=== PATIENT | female | born 1975 | race Two or more races ===

== ENCOUNTER 2023-05-26 11:34 | Inpatient (IN) | payer MEDICAID, OTHER ==
[~2023-05-26] VITALS: Ht 162.6 cm; Wt 94.0 kg
[2023-05-26 12:22] LABS: Urine Epithelial Cast None Seen /hpf (<5)
[2023-05-26 12:55] LABS: Urine Bacteria FEW /hpf (None Seen); Urine Blood 1+ /uL (Negative); Urine Clarity HAZY (Clear); Urine Color Yellow (Yellow); Urine Hyaline Cast FEW /lpf (0 - 2); Urine Mucus FEW (None Seen); Urine Protein, UAD 1+ (Negative); Urine Specific Gravity 1.028 (1.001-1.035); Urine WBC 18 /hpf (0 - 5)
[2023-05-26 12:56] LABS: Basophils # (auto) 0 10 ^3/uL (0-0.2); Basophils % (auto) 0.2 % (0.0-2.0); Eosinophils # (auto) 0 10 ^3/uL (0-0.8); Hematocrit 45.7 % (36.0-46.0); Hemoglobin 14.7 g/dL (12.2-16.2); Lymphocytes % (auto) 7.7 % (10.0-50.0); Mean Corpuscular Hemoglobin 28.2 pg (28.0-32.0); Mean Corpuscular Hgb Conc. 32.3 g/dL (32.0-36.0); Mean Corpuscular Volume 87.3 fL (80.0-100.0); Monocytes # (auto) 0.4 10 ^3/uL (0-1.3); Neutrophils # (auto) 11.9 10 ^3/uL (1.6-8.6); Neutrophils % (auto) 89.1 % (37.0-80.0); Red Blood Cells 5.23 10^6/uL (4.0-5.20); Red Cell Distribution Width 13.7 % (11.8-14.3); White Blood Cell 13.4 10^3/uL (4.4-10.8)
[2023-05-26] MEDS ORDERED: SODIUM CHLORIDE 0.9% 1,000 ML IVB ONE (13:15)
[2023-05-26 13:19] LABS: Alanine Aminotransferase 81 U/L (7-40); Albumin 4.6 g/dL (3.2-4.8); Alkaline Phosphatase 141 U/L (46-116); Anion Gap 10 (5-15); Aspartate Aminotransferase 58 U/L (13-40); BUN/Creatinine Ratio 12.6 (10.0-20.0); Bilirubin, Total 1.5 mg/dL (0.2-1.0); Blood Urea Nitrogen 12 mg/dL (9-23); Calcium 9.4 mg/dL (8.5-10.1); Carbon Dioxide 23 mmol/L (20-30); Chloride 102 mmol/L (98-107); Glucose 122 mg/dL (74-106); Potassium 4.1 mmol/L (3.5-5.1); Sodium 135 mmol/L (136-145); Total Protein 8.1 g/dL (5.7-8.2)
[2023-05-26 14:09] LABS: Magnesium 1.7 mg/dL (1.6-2.6)
[2023-05-26] MEDS ORDERED: cefTRIAXone 1GM/50ML D5W 50 ML IV ONE (14:45)
[2023-05-26] MEDS ORDERED: metroNIDAZOLE 500MG/100ML 100 ML IV ONE (18:15)
[2023-05-26] MEDS ORDERED: KETOROLAC TROMETH 30 MG/ML 1ML VIAL IV ONE (18:45)
[2023-05-26] MEDS ORDERED: ONDANSETRON HCL 4 MG/2 ML VIAL IV PRN (19:15)
[2023-05-26] MEDS ORDERED: MORPHINE SULFATE 4 MG/ML SYR/VIAL IV ONE (19:15)
[2023-05-26] MEDS ORDERED: DOCUSATE SOD 100 MG CAP PO PRN (19:15)
[2023-05-26] MEDS ORDERED: ONDANSETRON HCL 4 MG/2 ML VIAL IV ONE (19:15)
[2023-05-26 19:45] VITALS: PULSE 102; RESP 16; O2SAT 96
[2023-05-26] MEDS: SODIUM CHLORIDE 0.9% 1,000 ML IV SCH (20:29)
[2023-05-26] MEDS: metroNIDAZOLE 500MG/100ML 100 ML IV SCH (21:20)
[2023-05-26] MEDS: DOXYCYCLINE 100MG/250ML 250 ML IV SCH (21:23)
[2023-05-26 22:00] VITALS: BP 104/54; PULSE 88; RESP 18; TEMP 98.4; O2SAT 94
[2023-05-27] MEDS: SODIUM CHLORIDE 0.9% 1,000 ML IV SCH ×3 (03:38→20:15)
[2023-05-27] MEDS: metroNIDAZOLE 500MG/100ML 100 ML IV SCH ×3 (04:36→22:00)
[2023-05-27] MEDS: HYDROcodone-ACET 5/325MG TAB PO PRN ×2 (04:36→09:52)
[2023-05-27 05:00] VITALS: BP 97/62; PULSE 86; RESP 18; TEMP 98.5; O2SAT 99
[2023-05-27 08:00] LABS: Basophils # (auto) 0 10 ^3/uL (0-0.2); Basophils % (auto) 0.2 % (0.0-2.0); Eosinophils # (auto) 0 10 ^3/uL (0-0.8); Hematocrit 37.1 % (36.0-46.0); Lymphocytes # (auto) 1.2 10 ^3/uL (0.4-5.4); Lymphocytes % (auto) 9.7 % (10.0-50.0); Mean Corpuscular Hemoglobin 28.6 pg (28.0-32.0); Mean Corpuscular Hgb Conc. 32.3 g/dL (32.0-36.0); Mean Corpuscular Volume 88.4 fL (80.0-100.0); Monocytes # (auto) 0.7 10 ^3/uL (0-1.3); Monocytes % (auto) 5.9 % (0.0-12.0); Neutrophils # (auto) 10.7 10 ^3/uL (1.6-8.6); Neutrophils % (auto) 84.2 % (37.0-80.0); Red Cell Distribution Width 13.5 % (11.8-14.3); White Blood Cell 12.7 10^3/uL (4.4-10.8)
[2023-05-27 08:25] LABS: Alanine Aminotransferase 53 U/L (7-40); Albumin 3.6 g/dL (3.2-4.8); Alkaline Phosphatase 100 U/L (46-116); Anion Gap 10 (5-15); Aspartate Aminotransferase 21 U/L (13-40); BUN/Creatinine Ratio 16.3 (10.0-20.0); Blood Urea Nitrogen 13 mg/dL (9-23); Calcium 8.6 mg/dL (8.5-10.1); Carbon Dioxide 20 mmol/L (20-30); Chloride 105 mmol/L (98-107); Cholesterol 104 mg/dL (< 200); Glucose 107 mg/dL (74-106); HDL Cholesterol 47 mg/dL (40-59); LDL Cholesterol 45 mg/dL (< 100); Potassium 3.4 mmol/L (3.5-5.1); Sodium 135 mmol/L (136-145); Triglycerides 49 mg/dL (< 150)
[2023-05-27 08:26] LABS: Bilirubin, Total 0.9 mg/dL (0.2-1.0); Total Protein 6.4 g/dL (5.7-8.2)
[2023-05-27 08:29] VITALS: BP 104/59; PULSE 75; RESP 19; TEMP 98.6; O2SAT 97
[2023-05-27] MEDS: DOXYCYCLINE 100MG/250ML 250 ML IV SCH ×2 (09:49→20:52)
[2023-05-27] MEDS: cefTRIAXone 1GM/50ML D5W 50 ML IV SCH (10:13)
[2023-05-27 12:15] LABS: COVID19 ANTIGEN SOFIA FIA NEGATIVE (NEGATIVE); Rapid Influenza A Negative (Negative); Rapid Influenza B Negative (Negative)
[2023-05-27 12:51] VITALS: BP 114/55; PULSE 91; RESP 19; TEMP 99.1; O2SAT 93
[2023-05-27] MEDS: MORPHINE SULFATE INJ 2 MG/ml SYRG IV PRN ×2 (13:27→21:42)
[2023-05-27 16:47] VITALS: BP 107/53; PULSE 79; RESP 17; TEMP 99; O2SAT 93
[2023-05-27 22:00] VITALS: BP 109/63; PULSE 60; RESP 19; TEMP 99.1; O2SAT 94
[2023-05-28] VITALS (7 sets, daily range): BP systolic 107–153; BP diastolic 57–81; PULSE 90–100; RESP 16–20; TEMP 98–99.2; O2SAT 92–96
[2023-05-28] MEDS: metroNIDAZOLE 500MG/100ML 100 ML IV SCH ×3 (05:29→22:30)
[2023-05-28] MEDS: SODIUM CHLORIDE 0.9% 1,000 ML IV SCH ×3 (05:31→22:17)
[2023-05-28] MEDS: MORPHINE SULFATE INJ 2 MG/ml SYRG IV PRN ×3 (05:39→22:14)
[2023-05-28 06:30] LABS: Basophils # (auto) 0 10 ^3/uL (0-0.2); Basophils % (auto) 0.1 % (0.0-2.0); Eosinophils # (auto) 0 10 ^3/uL (0-0.8); Eosinophils % (auto) 0.1 % (0.0-7.0); Hematocrit 34.7 % (36.0-46.0); Hemoglobin 11.5 g/dL (12.2-16.2); Lymphocytes % (auto) 8.4 % (10.0-50.0); Mean Corpuscular Hemoglobin 28.5 pg (28.0-32.0); Mean Corpuscular Volume 86.3 fL (80.0-100.0); Monocytes # (auto) 0.5 10 ^3/uL (0-1.3); Monocytes % (auto) 4.4 % (0.0-12.0); Neutrophils # (auto) 9.9 10 ^3/uL (1.6-8.6); Red Blood Cells 4.03 10^6/uL (4.0-5.20); Red Cell Distribution Width 13.6 % (11.8-14.3); White Blood Cell 11.4 10^3/uL (4.4-10.8)
[2023-05-28 06:48] LABS: Anion Gap 8 (5-15); Carbon Dioxide 24 mmol/L (20-30); Chloride 103 mmol/L (98-107); Potassium 3.2 mmol/L (3.5-5.1); Sodium 135 mmol/L (136-145)
[2023-05-28 06:49] LABS: Calcium 8.4 mg/dL (8.7-10.4)
[2023-05-28 06:54] LABS: BUN/Creatinine Ratio 11.9 (10.0-20.0); Blood Urea Nitrogen 8 mg/dL (9-23); Glucose 105 mg/dL (74-106)
[2023-05-28] MEDS ORDERED: POTASSIUM CHL 20 Meq TABLET PO ONE (07:30)
[2023-05-28 08:06] LABS: Cancer Antigen (CA) 125 10.8 U/mL (0.0-38.1)
[2023-05-28] MEDS: DOXYCYCLINE 100MG/250ML 250 ML IV SCH ×2 (09:40→20:29)
[2023-05-28] MEDS: cefTRIAXone 1GM/50ML D5W 50 ML IV SCH (09:40)
[2023-05-28] MEDS: PANTOPRAZOLE 40 MG/10 ML VIAL INJ IV SCH (09:40)
[2023-05-28] MEDS: ACETAMINOPHEN 325 MG TAB PO PRN (21:57)
[2023-05-29] VITALS (7 sets, daily range): BP systolic 130–141; BP diastolic 76–85; PULSE 79–91; RESP 16–19; TEMP 97.9–99.4; O2SAT 93–96
[2023-05-29] MEDS: SODIUM CHLORIDE 0.9% 1,000 ML IV SCH ×3 (05:58→22:15)
[2023-05-29] MEDS: metroNIDAZOLE 500MG/100ML 100 ML IV SCH ×3 (06:06→22:58)
[2023-05-29 06:25] LABS: Anion Gap 7 (5-15); Carbon Dioxide 25 mmol/L (20-30); Chloride 105 mmol/L (98-107); Potassium 3.3 mmol/L (3.5-5.1); Sodium 137 mmol/L (136-145)
[2023-05-29 06:26] LABS: Calcium 8.6 mg/dL (8.7-10.4)
[2023-05-29 06:31] LABS: BUN/Creatinine Ratio 11.7 (10.0-20.0); Blood Urea Nitrogen 7 mg/dL (9-23); Glucose 103 mg/dL (74-106)
[2023-05-29 07:03] LABS: Basophils # (auto) 0.1 10 ^3/uL (0-0.2); Basophils % (auto) 0.5 % (0.0-2.0); Eosinophils # (auto) 0.1 10 ^3/uL (0-0.8); Eosinophils % (auto) 1.1 % (0.0-7.0); Hematocrit 35.4 % (36.0-46.0); Hemoglobin 11.8 g/dL (12.2-16.2); Lymphocytes # (auto) 1.1 10 ^3/uL (0.4-5.4); Mean Corpuscular Hemoglobin 28.9 pg (28.0-32.0); Mean Corpuscular Hgb Conc. 33.3 g/dL (32.0-36.0); Mean Corpuscular Volume 86.8 fL (80.0-100.0); Monocytes # (auto) 0.6 10 ^3/uL (0-1.3); Monocytes % (auto) 5.5 % (0.0-12.0); Neutrophils # (auto) 9.4 10 ^3/uL (1.6-8.6); Neutrophils % (auto) 82.9 % (37.0-80.0); Red Blood Cells 4.08 10^6/uL (4.0-5.20); Red Cell Distribution Width 13.3 % (11.8-14.3); White Blood Cell 11.4 10^3/uL (4.4-10.8)
[2023-05-29] MEDS ORDERED: POTASSIUM CHL 20 Meq TABLET PO ONE (08:00)
[2023-05-29] MEDS: cefTRIAXone 1GM/50ML D5W 50 ML IV SCH (08:55)
[2023-05-29] MEDS: DOXYCYCLINE 100MG/250ML 250 ML IV SCH ×2 (08:55→20:52)
[2023-05-29] MEDS: PANTOPRAZOLE 40 MG/10 ML VIAL INJ IV SCH (08:55)
[2023-05-29 09:31] LABS: Hepatitis B Surface Antigen Negative (Negative)
[2023-05-29 09:52] LABS: Hepatitis B Core IgM Negative
[2023-05-29 09:53] LABS: Hepatitis C Antibody Negative (Negative)
[2023-05-29 10:44] LABS: Hepatitis A Ab IgM Negative
[2023-05-29] MEDS ORDERED: POTASSIUM EFFERVESENT TAB 25 MEQ PO ONE (10:45)
[2023-05-29] MEDS: MORPHINE SULFATE INJ 2 MG/ml SYRG IV PRN ×2 (15:41→20:16)
[2023-05-29] MEDS ORDERED: LOPERAMIDE HCL 2 MG CAP/TAB PO PRN (23:30)
[2023-05-30 04:00] VITALS: BP 118/67; PULSE 84; RESP 17; TEMP 99.1; O2SAT 94
[2023-05-30] MEDS: metroNIDAZOLE 500MG/100ML 100 ML IV SCH ×2 (05:28→14:00)
[2023-05-30 05:30] LABS: Basophils # (auto) 0 10 ^3/uL (0-0.2); Basophils % (auto) 0.4 % (0.0-2.0); Eosinophils # (auto) 0.4 10 ^3/uL (0-0.8); Eosinophils % (auto) 4.1 % (0.0-7.0); Hematocrit 36.5 % (36.0-46.0); Hemoglobin 12.2 g/dL (12.2-16.2); Lymphocytes # (auto) 1.4 10 ^3/uL (0.4-5.4); Lymphocytes % (auto) 13.8 % (10.0-50.0); Mean Corpuscular Hemoglobin 28.9 pg (28.0-32.0); Mean Corpuscular Hgb Conc. 33.3 g/dL (32.0-36.0); Mean Corpuscular Volume 86.6 fL (80.0-100.0); Monocytes # (auto) 0.7 10 ^3/uL (0-1.3); Monocytes % (auto) 6.5 % (0.0-12.0); Neutrophils # (auto) 7.7 10 ^3/uL (1.6-8.6); Neutrophils % (auto) 75.2 % (37.0-80.0); Red Blood Cells 4.22 10^6/uL (4.0-5.20); Red Cell Distribution Width 13.8 % (11.8-14.3); White Blood Cell 10.2 10^3/uL (4.4-10.8)
[2023-05-30 05:46] LABS: Chloride 104 mmol/L (98-107); Potassium 3.7 mmol/L (3.5-5.1); Sodium 138 mmol/L (136-145)
[2023-05-30 05:47] LABS: Anion Gap 11 (5-15); Carbon Dioxide 23 mmol/L (20-30)
[2023-05-30 05:48] LABS: Calcium 8.9 mg/dL (8.7-10.4)
[2023-05-30 05:52] LABS: BUN/Creatinine Ratio 9.8 (10.0-20.0); Blood Urea Nitrogen 6 mg/dL (9-23); Glucose 121 mg/dL (74-106)
[2023-05-30] MEDS: SODIUM CHLORIDE 0.9% 1,000 ML IV SCH ×3 (06:35→23:15)
[2023-05-30 08:00] VITALS: O2SAT 96
[2023-05-30 09:00] VITALS: BP 117/59; PULSE 76; RESP 14; TEMP 98.4; O2SAT 97
[2023-05-30] MEDS: DOXYCYCLINE 100MG/250ML 250 ML IV SCH ×2 (09:31→20:24)
[2023-05-30] MEDS: PANTOPRAZOLE 40 MG/10 ML VIAL INJ IV SCH (11:01)
[2023-05-30] MEDS: cefTRIAXone 1GM/50ML D5W 50 ML IV SCH (11:01)
[2023-05-30] MEDS: FLORASTOR (S. BOULARDII) 250 MG CAP PO SCH (11:06)
[2023-05-30 13:00] VITALS: BP 120/72; PULSE 77; RESP 18; TEMP 98.7; O2SAT 95
[2023-05-30 17:00] VITALS: BP 137/87; PULSE 82; RESP 16; TEMP 98.3; O2SAT 96
[2023-05-30 22:00] VITALS: BP 113/68; PULSE 86; RESP 20; TEMP 99.8; O2SAT 95
[2023-05-31] MEDS ORDERED: metroNIDAZOLE 500MG/100ML 100 ML IV SCH (01:00)
[2023-05-31 05:00] VITALS: BP 115/75; PULSE 87; RESP 20; TEMP 98.2; O2SAT 95
[2023-05-31] MEDS: HYDROcodone-ACET 5/325MG TAB PO PRN (06:04)
[2023-05-31] MEDS: SODIUM CHLORIDE 0.9% 1,000 ML IV SCH ×2 (07:35→18:12)
[2023-05-31 09:00] VITALS: BP 143/71; PULSE 89; RESP 18; TEMP 98.6; O2SAT 91
[2023-05-31] MEDS: DOXYCYCLINE 100MG/250ML 250 ML IV SCH ×2 (09:40→23:04)
[2023-05-31] MEDS: PANTOPRAZOLE 40 MG/10 ML VIAL INJ IV SCH (11:14)
[2023-05-31] MEDS: FLORASTOR (S. BOULARDII) 250 MG CAP PO SCH (11:22)
[2023-05-31 13:00] VITALS: BP 149/83; PULSE 76; RESP 18; TEMP 98.3; O2SAT 94
[2023-05-31] MEDS: MORPHINE SULFATE INJ 2 MG/ml SYRG IV PRN (13:33)
[2023-05-31] MEDS: cefTRIAXone 1GM/50ML D5W 50 ML IV SCH (13:34)
[2023-05-31] MEDS: metroNIDAZOLE 500MG/100ML 100 ML IV SCH ×2 (14:43→20:38)
[2023-05-31 17:27] VITALS: BP 130/69; PULSE 89; RESP 16; TEMP 98.3; O2SAT 99
[2023-05-31 20:00] VITALS: BP 122/71; PULSE 94; RESP 19
[2023-05-31 22:00] VITALS: BP 122/71; PULSE 94; RESP 19; TEMP 100.2; O2SAT 92
[2023-06-01] MEDS: metroNIDAZOLE 500MG/100ML 100 ML IV SCH ×3 (04:24→20:50)
[2023-06-01 05:00] VITALS: BP 134/64; PULSE 89; RESP 19; TEMP 98.4; O2SAT 95
[2023-06-01 07:14] LABS: Chloride 106 mmol/L (98-107); Potassium 3.7 mmol/L (3.5-5.1); Sodium 139 mmol/L (136-145)
[2023-06-01 07:15] LABS: Anion Gap 10 (5-15); Calcium 8.7 mg/dL (8.7-10.4); Carbon Dioxide 23 mmol/L (20-30)
[2023-06-01 07:20] LABS: BUN/Creatinine Ratio 16.7 (10.0-20.0); Blood Urea Nitrogen 9 mg/dL (9-23); Glucose 99 mg/dL (74-106)
[2023-06-01 09:00] VITALS: BP 92/55; PULSE 96; RESP 16; TEMP 98.3; O2SAT 93
[2023-06-01] MEDS: DOXYCYCLINE 100MG/250ML 250 ML IV SCH ×2 (09:28→22:34)
[2023-06-01] MEDS ORDERED: IOHEXOL 300 MG/ML 100ML BOTTLE IJ ONE (09:41)
[2023-06-01] MEDS: PANTOPRAZOLE 40 MG/10 ML VIAL INJ IV SCH (11:10)
[2023-06-01 13:00] VITALS: BP 134/71; PULSE 86; RESP 18; TEMP 98.3; O2SAT 97
[2023-06-01] MEDS: cefTRIAXone 1GM/50ML D5W 50 ML IV SCH (13:02)
[2023-06-01] MEDS: HYDROcodone-ACET 5/325MG TAB PO PRN ×2 (14:02→20:52)
[2023-06-01 17:00] VITALS: BP 109/62; PULSE 100; RESP 20; TEMP 98.4; O2SAT 92
[2023-06-01 22:00] VITALS: BP 102/66; PULSE 81; RESP 18; TEMP 98.2; O2SAT 96
[2023-06-02] MEDS: metroNIDAZOLE 500MG/100ML 100 ML IV SCH ×3 (04:22→21:42)
[2023-06-02] MEDS: guaiFENesin-DM 100/10mg/5ml SYR PO PRN ×3 (04:22→21:47)
[2023-06-02 05:00] VITALS: BP 114/68; PULSE 76; RESP 18; TEMP 98.5; O2SAT 98
[2023-06-02 08:00] VITALS: PULSE 92; RESP 18
[2023-06-02 09:09] VITALS: BP 138/80; PULSE 82; RESP 19; TEMP 97.9; O2SAT 99
[2023-06-02] MEDS: PANTOPRAZOLE 40 MG/10 ML VIAL INJ IV SCH (10:37)
[2023-06-02] MEDS: cefTRIAXone 1GM/50ML D5W 50 ML IV SCH (10:37)
[2023-06-02] MEDS: DOXYCYCLINE 100MG/250ML 250 ML IV SCH ×2 (12:11→22:54)
[2023-06-02 13:02] VITALS: BP 125/70; PULSE 79; RESP 19; TEMP 98.4; O2SAT 94
[2023-06-02] MEDS: HYDROcodone-ACET 5/325MG TAB PO PRN ×2 (15:15→21:47)
[2023-06-02 16:48] VITALS: BP 141/90; PULSE 87; RESP 19; TEMP 98.2; O2SAT 96
[2023-06-02 22:00] VITALS: BP 118/67; PULSE 67; RESP 16; TEMP 99; O2SAT 93
[2023-06-03] VITALS (7 sets, daily range): BP systolic 110–138; BP diastolic 59–74; PULSE 70–89; RESP 16–18; TEMP 97.7–98.5; O2SAT 94–97
[2023-06-03] MEDS: metroNIDAZOLE 500MG/100ML 100 ML IV SCH ×3 (04:16→21:48)
[2023-06-03 05:52] LABS: Basophils # (auto) 0.1 10 ^3/uL (0-0.2); Basophils % (auto) 0.7 % (0.0-2.0); Monocytes # (auto) 0.6 10 ^3/uL (0-1.3); Neutrophils # (auto) 7.1 10 ^3/uL (1.6-8.6)
[2023-06-03 05:55] LABS: Eosinophils # (auto) 0.2 10 ^3/uL (0-0.8); Eosinophils % (auto) 2.3 % (0.0-7.0); Hematocrit 39.7 % (36.0-46.0); Hemoglobin 12.9 g/dL (12.2-16.2); Lymphocytes # (auto) 2.4 10 ^3/uL (0.4-5.4); Lymphocytes % (auto) 22.8 % (10.0-50.0); Mean Corpuscular Hemoglobin 28.6 pg (28.0-32.0); Mean Corpuscular Hgb Conc. 32.6 g/dL (32.0-36.0); Mean Corpuscular Volume 87.9 fL (80.0-100.0); Monocytes % (auto) 5.7 % (0.0-12.0); Neutrophils % (auto) 68.5 % (37.0-80.0); Red Blood Cells 4.52 10^6/uL (4.0-5.20); Red Cell Distribution Width 13.7 % (11.8-14.3); White Blood Cell 10.4 10^3/uL (4.4-10.8)
[2023-06-03 06:09] LABS: Chloride 105 mmol/L (98-107); Potassium 3.8 mmol/L (3.5-5.1); Sodium 138 mmol/L (136-145)
[2023-06-03 06:10] LABS: Anion Gap 11 (5-15); Carbon Dioxide 22 mmol/L (20-30)
[2023-06-03 06:15] LABS: Blood Urea Nitrogen 8 mg/dL (9-23); Glucose 94 mg/dL (74-106)
[2023-06-03 06:16] LABS: Magnesium 2.2 mg/dL (1.6-2.6)
[2023-06-03] MEDS: DOXYCYCLINE 100MG/250ML 250 ML IV SCH ×2 (09:11→23:56)
[2023-06-03] MEDS: PANTOPRAZOLE 40 MG/10 ML VIAL INJ IV SCH (09:11)
[2023-06-03] MEDS: HYDROcodone-ACET 5/325MG TAB PO PRN ×2 (09:17→16:13)
[2023-06-03] MEDS: guaiFENesin-DM 100/10mg/5ml SYR PO PRN ×2 (09:17→16:13)
[2023-06-03] MEDS: cefTRIAXone 1GM/50ML D5W 50 ML IV SCH (11:00)
[2023-06-03 19:44] LABS: Urine Epithelial Cast None Seen /hpf (<5)
[2023-06-03 19:52] LABS: Urine Bacteria FEW /hpf (None Seen); Urine Blood Negative /uL (Negative); Urine Clarity Clear (Clear); Urine Color Yellow (Yellow); Urine Protein, UAD Negative (Negative); Urine Specific Gravity 1.015 (1.001-1.035); Urine Urobilinogen Normal (Negative); Urine WBC 1 /hpf (0 - 5)
[2023-06-04] MEDS: metroNIDAZOLE 500MG/100ML 100 ML IV SCH ×3 (04:03→20:30)
[2023-06-04 05:00] VITALS: BP 117/66; PULSE 85; RESP 20; TEMP 98.4; O2SAT 93
[2023-06-04 09:00] VITALS: BP 128/71; PULSE 74; RESP 17; TEMP 97.6; O2SAT 97
[2023-06-04] MEDS: HYDROcodone-ACET 5/325MG TAB PO PRN ×2 (09:09→20:17)
[2023-06-04] MEDS: PANTOPRAZOLE 40 MG/10 ML VIAL INJ IV SCH (09:09)
[2023-06-04] MEDS: DOXYCYCLINE 100MG/250ML 250 ML IV SCH ×2 (09:09→21:30)
[2023-06-04] MEDS: cefTRIAXone 1GM/50ML D5W 50 ML IV SCH (11:59)
[2023-06-04 13:00] VITALS: BP 118/68; PULSE 74; RESP 20; TEMP 98; O2SAT 98
[2023-06-04] MEDS ORDERED: ceFAZolin 2 GM/D5W100ml 100 ML IV ONE (14:30)
[2023-06-04 17:00] VITALS: BP 143/81; PULSE 86; RESP 17; TEMP 97.9; O2SAT 98
[2023-06-04 20:00] VITALS: BP 118/72; PULSE 83; RESP 19; TEMP 97.8; O2SAT 98
[2023-06-04 22:00] VITALS: BP 118/72; PULSE 83; RESP 19; TEMP 97.8; O2SAT 98
[2023-06-05] MEDS: metroNIDAZOLE 500MG/100ML 100 ML IV SCH (04:27)
[2023-06-05 05:00] VITALS: BP 154/72; PULSE 73; RESP 18; TEMP 97.9; O2SAT 98
[2023-06-05 05:48] LABS: Eosinophils # (auto) 0.2 10 ^3/uL (0-0.8); Lymphocytes # (auto) 2.4 10 ^3/uL (0.4-5.4); Monocytes # (auto) 0.6 10 ^3/uL (0-1.3); Neutrophils # (auto) 7.2 10 ^3/uL (1.6-8.6); White Blood Cell 10.5 10^3/uL (4.4-10.8)
[2023-06-05 05:51] LABS: Basophils # (auto) 0.1 10 ^3/uL (0-0.2); Hemoglobin 12.2 g/dL (12.2-16.2); Lymphocytes % (auto) 22.9 % (10.0-50.0); Mean Corpuscular Hemoglobin 28.4 pg (28.0-32.0); Mean Corpuscular Hgb Conc. 32.2 g/dL (32.0-36.0); Mean Corpuscular Volume 88.1 fL (80.0-100.0); Monocytes % (auto) 5.3 % (0.0-12.0); Neutrophils % (auto) 68.8 % (37.0-80.0); Red Blood Cells 4.32 10^6/uL (4.0-5.20); Red Cell Distribution Width 13.9 % (11.8-14.3)
[2023-06-05 06:03] LABS: INR 0.98 (0.9-1.15); Partial Thromboplastin Time 27.3 SEC (24.5-34.5); Prothrombin Time 10.3 sec (9.3-11.8)
[2023-06-05 06:35] LABS: Alanine Aminotransferase 40 U/L (7-40); Albumin 3.6 g/dL (3.2-4.8); Alkaline Phosphatase 103 U/L (46-116); Anion Gap 7 (5-15); Aspartate Aminotransferase 32 U/L (13-40); BUN/Creatinine Ratio 13.3 (10.0-20.0); Blood Urea Nitrogen 8 mg/dL (9-23); Calcium 8.8 mg/dL (8.5-10.1); Carbon Dioxide 24 mmol/L (20-30); Chloride 108 mmol/L (98-107); Glucose 106 mg/dL (74-106); Potassium 3.7 mmol/L (3.5-5.1); Sodium 139 mmol/L (136-145)
[2023-06-05 06:36] LABS: Bilirubin, Total 0.3 mg/dL (0.2-1.0); Total Protein 6.9 g/dL (5.7-8.2)
[2023-06-05] MEDS: DOXYCYCLINE 100MG/250ML 250 ML IV SCH (08:45)
[2023-06-05 08:50] VITALS: BP 137/81; PULSE 78; RESP 19; TEMP 97.9; O2SAT 99
[2023-06-05] MEDS ORDERED: SUCCINYLCHOLINE CHLORIDE 20 MG/ML 10ML VIAL IV ONE (09:12)
[2023-06-05] MEDS ORDERED: fentaNYL CITRATE 100 MCG/2 ML VL ONE (09:18)
[2023-06-05] MEDS ORDERED: BUPIVACAINE W/ EPINEPH 0.5% MPF 30ML VIAL IJ ONE (09:39)
[2023-06-05] MEDS ORDERED: ceFAZolin 2 GM/D5W100ml 100 ML IV ONE (09:43)
[2023-06-05] MEDS ORDERED: DexAMETHasone SOD PHOS 10MG/1ML VIAL INJ ONE (09:58)
[2023-06-05] MEDS ORDERED: ONDANSETRON HCL 4 MG/2 ML VIAL ONE (09:58)
[2023-06-05] MEDS ORDERED: ROCURONIUM 10MG/ML 10ML VIAL IV ONE (09:58)
[2023-06-05] MEDS: PANTOPRAZOLE 40 MG/10 ML VIAL INJ IV SCH (10:00)
[2023-06-05] MEDS ORDERED: MEPERIDINE HCL (25 MG/ML) 1ML VIAL IV PRN (10:15)
[2023-06-05] MEDS ORDERED: METOCLOPRAMIDE HCL 5MG/ml INJ 2ml VIAL IV PRN (10:15)
[2023-06-05] MEDS ORDERED: ONDANSETRON HCL 4 MG/2 ML VIAL IV PRN (10:15)
[2023-06-05] MEDS ORDERED: MEPERIDINE HCL (25 MG/ML) 1ML VIAL ONE ×2 (10:38→11:33)
[2023-06-05] MEDS ORDERED: ROPIVACAINE 0.5% (5MG/ML) 20ML AMPULE IJ ONE (11:05)
[2023-06-05] MEDS ORDERED: SUGAMMADEX 200mg/2ml Vial (100MG/ML) IV ONE (11:28)
[2023-06-05] MEDS: cefTRIAXone 1GM/50ML D5W 50 ML IV SCH (11:46)
[2023-06-05 11:56] VITALS: O2SAT 87
[2023-06-05] MEDS: HYDROmorphone HCL 2 MG/ML VL/or syr IV PRN ×5 (12:23→23:36)
[2023-06-05] MEDS: HYDROcodone-ACET 5/325MG TAB PO PRN ×3 (12:39→21:41)
[2023-06-05] MEDS ORDERED: KETOROLAC TROMETH 30 MG/ML 1ML VIAL IV ONE (14:00)
[2023-06-05] MEDS: guaiFENesin-DM 100/10mg/5ml SYR PO PRN (14:15)
[2023-06-05 16:50] VITALS: BP 124/80; PULSE 93; RESP 19; TEMP 98.4; O2SAT 96
[2023-06-05 20:00] VITALS: BP 118/72; PULSE 91; RESP 18; TEMP 98.5; O2SAT 96
[2023-06-05] MEDS: DOXYCYCLINE 100 MG TAB/CAP PO SCH (21:40)
[2023-06-05] MEDS ORDERED: metroNIDAZOLE 500 MG TAB PO SCH (22:00)
[2023-06-06 05:00] VITALS: BP 112/65; PULSE 79; RESP 18; TEMP 97.8; O2SAT 95
[2023-06-06 05:15] LABS: Basophils # (auto) 0 10 ^3/uL (0-0.2); Basophils % (auto) 0.1 % (0.0-2.0); Eosinophils # (auto) 0 10 ^3/uL (0-0.8); Eosinophils % (auto) 0.1 % (0.0-7.0); Monocytes # (auto) 0.7 10 ^3/uL (0-1.3); Monocytes % (auto) 3.8 % (0.0-12.0); White Blood Cell 17.8 10^3/uL (4.4-10.8)
[2023-06-06 05:17] LABS: Hematocrit 33.9 % (36.0-46.0); Hemoglobin 11.2 g/dL (12.2-16.2); Lymphocytes % (auto) 11.4 % (10.0-50.0); Mean Corpuscular Hemoglobin 28.7 pg (28.0-32.0); Mean Corpuscular Hgb Conc. 32.9 g/dL (32.0-36.0); Mean Corpuscular Volume 87.1 fL (80.0-100.0); Neutrophils % (auto) 84.6 % (37.0-80.0); Red Cell Distribution Width 13.7 % (11.8-14.3)
[2023-06-06 05:24] LABS: Alanine Aminotransferase 33 U/L (7-40); Albumin 3.6 g/dL (3.2-4.8); Alkaline Phosphatase 95 U/L (46-116); Anion Gap 8 (5-15); Aspartate Aminotransferase 22 U/L (13-40); BUN/Creatinine Ratio 15.7 (10.0-20.0); Blood Urea Nitrogen 8 mg/dL (9-23); Calcium 8.7 mg/dL (8.7-10.4); Carbon Dioxide 25 mmol/L (20-30); Chloride 106 mmol/L (98-107); Glucose 107 mg/dL (74-106); Sodium 139 mmol/L (136-145)
[2023-06-06 05:25] LABS: Bilirubin, Total 0.4 mg/dL (0.2-1.0); Total Protein 6.6 g/dL (5.7-8.2)
[2023-06-06] MEDS: HYDROcodone-ACET 5/325MG TAB PO PRN ×2 (06:36→17:52)
[2023-06-06 08:40] VITALS: BP 122/60; PULSE 68; RESP 18; TEMP 99.1; O2SAT 96
[2023-06-06] MEDS: DOXYCYCLINE 100 MG TAB/CAP PO SCH ×2 (09:33→21:53)
[2023-06-06] MEDS: PANTOPRAZOLE 40 MG/10 ML VIAL INJ IV SCH (09:33)
[2023-06-06] MEDS: HYDROmorphone HCL 2 MG/ML VL/or syr IV PRN ×3 (09:33→21:57)
[2023-06-06 12:55] VITALS: BP 130/69; PULSE 79; RESP 18; TEMP 99; O2SAT 96
[2023-06-06] MEDS: metroNIDAZOLE 500 MG TAB PO SCH ×2 (15:31→21:53)
[2023-06-06] MEDS: guaiFENesin-DM 100/10mg/5ml SYR PO PRN (15:32)
[2023-06-06 16:50] VITALS: BP 122/61; PULSE 86; RESP 18; TEMP 98.4; O2SAT 96
[2023-06-06 18:06] LABS: Chlamydia Trachomatis, NAA Negative (Negative); Neisseria gonorrhoeae, NAA Negative (Negative)
[2023-06-06 22:06] VITALS: BP 119/72; PULSE 90; RESP 16; TEMP 98.2; O2SAT 94
[2023-06-07] MEDS: HYDROmorphone HCL 2 MG/ML VL/or syr IV PRN ×4 (02:27→17:51)
[2023-06-07 05:03] VITALS: BP 124/73; PULSE 82; RESP 17; TEMP 98; O2SAT 94
[2023-06-07] MEDS: metroNIDAZOLE 500 MG TAB PO SCH ×3 (06:20→22:08)
[2023-06-07 06:41] LABS: Basophils # (auto) 0.1 10 ^3/uL (0-0.2); Hemoglobin 11.4 g/dL (12.2-16.2); Monocytes # (auto) 0.7 10 ^3/uL (0-1.3)
[2023-06-07 06:43] LABS: Basophils % (auto) 0.6 % (0.0-2.0); Eosinophils # (auto) 0.2 10 ^3/uL (0-0.8); Eosinophils % (auto) 1.7 % (0.0-7.0); Hematocrit 34.9 % (36.0-46.0); Lymphocytes # (auto) 2.4 10 ^3/uL (0.4-5.4); Lymphocytes % (auto) 20.1 % (10.0-50.0); Mean Corpuscular Hemoglobin 28.9 pg (28.0-32.0); Mean Corpuscular Hgb Conc. 32.6 g/dL (32.0-36.0); Mean Corpuscular Volume 88.5 fL (80.0-100.0); Monocytes % (auto) 5.7 % (0.0-12.0); Neutrophils # (auto) 8.7 10 ^3/uL (1.6-8.6); Neutrophils % (auto) 71.9 % (37.0-80.0); Red Blood Cells 3.95 10^6/uL (4.0-5.20); Red Cell Distribution Width 13.9 % (11.8-14.3); White Blood Cell 12.1 10^3/uL (4.4-10.8)
[2023-06-07 07:14] LABS: Alanine Aminotransferase 29 U/L (7-40); Albumin 3.5 g/dL (3.2-4.8); Alkaline Phosphatase 92 U/L (46-116); Anion Gap 7 (5-15); Aspartate Aminotransferase 21 U/L (13-40); Bilirubin, Total 0.3 mg/dL (0.2-1.0); Calcium 8.7 mg/dL (8.7-10.4); Carbon Dioxide 26 mmol/L (20-30); Chloride 105 mmol/L (98-107); Glucose 85 mg/dL (74-106); Magnesium 2.1 mg/dL (1.6-2.6); Potassium 3.9 mmol/L (3.5-5.1); Sodium 138 mmol/L (136-145); Total Protein 6.6 g/dL (5.7-8.2)
[2023-06-07 07:15] LABS: BUN/Creatinine Ratio 10.2 (10.0-20.0); Blood Urea Nitrogen < 5 mg/dL (9-23)
[2023-06-07 09:00] VITALS: BP 124/73; PULSE 86; RESP 18; TEMP 97.9; O2SAT 95
[2023-06-07] MEDS: PANTOPRAZOLE 40 MG/10 ML VIAL INJ IV SCH (09:27)
[2023-06-07] MEDS: DOXYCYCLINE 100 MG TAB/CAP PO SCH ×2 (09:27→22:08)
[2023-06-07] MEDS: guaiFENesin-DM 100/10mg/5ml SYR PO PRN (09:27)
[2023-06-07 13:00] VITALS: BP 114/70; PULSE 83; RESP 17; TEMP 98.1; O2SAT 97
[2023-06-07] MEDS: HYDROcodone-ACET 5/325MG TAB PO PRN (13:10)
[2023-06-07 17:00] VITALS: BP 112/60; PULSE 88; RESP 19; TEMP 98.4; O2SAT 93
[2023-06-07 20:00] VITALS: PULSE 95; RESP 19
[2023-06-07 22:00] VITALS: BP 106/58; PULSE 93; RESP 20; TEMP 99; O2SAT 93
[2023-06-08] VITALS (7 sets, daily range): BP systolic 112–152; BP diastolic 67–86; PULSE 80–99; RESP 17–20; TEMP 97.8–98.4; O2SAT 91–95
[2023-06-08] MEDS: HYDROmorphone HCL 2 MG/ML VL/or syr IV PRN ×4 (01:26→20:12)
[2023-06-08] MEDS: HYDROcodone-ACET 5/325MG TAB PO PRN ×2 (02:57→07:05)
[2023-06-08] MEDS: guaiFENesin-DM 100/10mg/5ml SYR PO PRN ×2 (06:08→22:10)
[2023-06-08] MEDS: metroNIDAZOLE 500 MG TAB PO SCH ×3 (06:09→22:05)
[2023-06-08] MEDS: PANTOPRAZOLE 40 MG/10 ML VIAL INJ IV SCH ×2 (06:29→10:32)
[2023-06-08] MEDS: DOXYCYCLINE 100 MG TAB/CAP PO SCH ×2 (10:29→22:05)
[2023-06-09 05:00] VITALS: BP 121/79; PULSE 77; RESP 17; TEMP 98.6; O2SAT 92
[2023-06-09] MEDS: HYDROcodone-ACET 5/325MG TAB PO PRN ×2 (05:03→14:50)
[2023-06-09] MEDS: metroNIDAZOLE 500 MG TAB PO SCH (05:06)
[2023-06-09 05:59] LABS: Basophils # (auto) 0.1 10 ^3/uL (0-0.2); Eosinophils # (auto) 0.2 10 ^3/uL (0-0.8); Monocytes # (auto) 0.5 10 ^3/uL (0-1.3); Neutrophils # (auto) 6.8 10 ^3/uL (1.6-8.6); White Blood Cell 9.9 10^3/uL (4.4-10.8)
[2023-06-09 06:02] LABS: Eosinophils % (auto) 1.6 % (0.0-7.0); Hematocrit 37.8 % (36.0-46.0); Hemoglobin 12.6 g/dL (12.2-16.2); Lymphocytes # (auto) 2.3 10 ^3/uL (0.4-5.4); Lymphocytes % (auto) 22.9 % (10.0-50.0); Mean Corpuscular Hemoglobin 28.9 pg (28.0-32.0); Mean Corpuscular Hgb Conc. 33.2 g/dL (32.0-36.0); Mean Corpuscular Volume 87.1 fL (80.0-100.0); Monocytes % (auto) 5.3 % (0.0-12.0); Neutrophils % (auto) 69.2 % (37.0-80.0); Red Blood Cells 4.34 10^6/uL (4.0-5.20); Red Cell Distribution Width 13.6 % (11.8-14.3)
[2023-06-09 06:20] LABS: Anion Gap 10 (5-15); Carbon Dioxide 23 mmol/L (20-30); Chloride 106 mmol/L (98-107); Potassium 3.5 mmol/L (3.5-5.1); Sodium 139 mmol/L (136-145)
[2023-06-09 06:21] LABS: Calcium 8.8 mg/dL (8.7-10.4)
[2023-06-09 06:26] LABS: BUN/Creatinine Ratio 13.2 (10.0-20.0); Blood Urea Nitrogen 7 mg/dL (9-23); Glucose 106 mg/dL (74-106)
[2023-06-09] MEDS ORDERED: IOHEXOL 300 MG/ML 100ML BOTTLE IJ ONE (08:54)
[2023-06-09] MEDS ORDERED: OMNIPAQUE 12mg/ml 500ml ORAL SOLUTION PO ONE (08:54)
[2023-06-09 09:00] VITALS: BP 125/71; PULSE 79; RESP 16; TEMP 97.8; O2SAT 94
[2023-06-09] MEDS: ONDANSETRON HCL 4 MG/2 ML VIAL IV PRN ×2 (09:40→18:43)
[2023-06-09] MEDS: DOXYCYCLINE 100 MG TAB/CAP PO SCH (09:41)
[2023-06-09] MEDS: HYDROmorphone HCL 2 MG/ML VL/or syr IV PRN ×2 (09:41→18:44)
[2023-06-09 13:00] VITALS: BP 137/82; PULSE 84; RESP 20; TEMP 98.2; O2SAT 92
[2023-06-09] MEDS ORDERED: DOXYCYCLINE 100MG/250ML 250 ML IV SCH (13:15)
[2023-06-09] MEDS ORDERED: MEROPENEM 1GM IVPB 100 ML IV ONE (13:15)
[2023-06-09] MEDS ORDERED: MEROPENEM 1GM IVPB 100 ML IV SCH (14:00)
[2023-06-09] MEDS: guaiFENesin-DM 100/10mg/5ml SYR PO PRN (15:56)
[2023-06-09 17:00] VITALS: BP 124/75; PULSE 87; RESP 20; TEMP 98.3; O2SAT 93
[2023-06-09] MEDS: PIPERACILLIN-TAZOB 3.375GM 100 ML IV SCH ×2 (18:44→23:51)
[2023-06-09 20:00] VITALS: PULSE 93; RESP 18; O2SAT 91
[2023-06-09 22:00] VITALS: BP 101/56; PULSE 86; RESP 20; TEMP 98.6; O2SAT 91
[2023-06-10] MEDS: DOXYCYCLINE 100MG/250ML 250 ML IV SCH ×2 (04:02→16:09)
[2023-06-10 05:00] VITALS: BP 109/63; PULSE 80; RESP 20; TEMP 98; O2SAT 94
[2023-06-10] MEDS: PIPERACILLIN-TAZOB 3.375GM 100 ML IV SCH ×3 (06:05→17:52)
[2023-06-10] MEDS: HYDROmorphone HCL 2 MG/ML VL/or syr IV PRN ×2 (08:41→17:50)
[2023-06-10] MEDS: PANTOPRAZOLE 40 MG/10 ML VIAL INJ IV SCH (08:43)
[2023-06-10 09:00] VITALS: BP 129/78; PULSE 85; RESP 19; TEMP 97.8; O2SAT 94
[2023-06-10 13:00] VITALS: BP 136/86; PULSE 96; RESP 16; TEMP 98.9; O2SAT 93
[2023-06-10 17:00] VITALS: BP 119/66; PULSE 89; RESP 18; TEMP 98.7; O2SAT 95
[2023-06-10] MEDS: FLUCONAZOLE 100 MG TAB PO SCH (17:51)
[2023-06-10] MEDS: guaiFENesin-DM 100/10mg/5ml SYR PO PRN (17:57)
[2023-06-10 20:11] VITALS: PULSE 90; RESP 18; O2SAT 93
[2023-06-10 22:00] VITALS: BP 123/73; PULSE 90; RESP 18; TEMP 98.3; O2SAT 93
[2023-06-11] MEDS: PIPERACILLIN-TAZOB 3.375GM 100 ML IV SCH ×4 (00:05→17:36)
[2023-06-11 05:00] VITALS: BP 128/80; PULSE 82; RESP 20; TEMP 97.9; O2SAT 92
[2023-06-11 06:22] LABS: Eosinophils # (auto) 0.2 10 ^3/uL (0-0.8); Mean Corpuscular Hemoglobin 28.8 pg (28.0-32.0); Monocytes # (auto) 0.6 10 ^3/uL (0-1.3); Neutrophils # (auto) 6.9 10 ^3/uL (1.6-8.6); Red Cell Distribution Width 13.8 % (11.8-14.3)
[2023-06-11 06:23] LABS: Basophils # (auto) 0.1 10 ^3/uL (0-0.2); Eosinophils % (auto) 1.9 % (0.0-7.0); Hematocrit 36.9 % (36.0-46.0); Hemoglobin 12.1 g/dL (12.2-16.2); Lymphocytes # (auto) 2.2 10 ^3/uL (0.4-5.4); Lymphocytes % (auto) 21.7 % (10.0-50.0); Mean Corpuscular Hgb Conc. 32.9 g/dL (32.0-36.0); Mean Corpuscular Volume 87.8 fL (80.0-100.0); Monocytes % (auto) 6.2 % (0.0-12.0); Neutrophils % (auto) 69.2 % (37.0-80.0); White Blood Cell 9.9 10^3/uL (4.4-10.8)
[2023-06-11 06:38] LABS: Calcium 9.2 mg/dL (8.5-10.1); Chloride 106 mmol/L (98-107); Potassium 3.8 mmol/L (3.5-5.1); Sodium 138 mmol/L (136-145)
[2023-06-11 06:39] LABS: Anion Gap 10 (5-15); Carbon Dioxide 22 mmol/L (20-30)
[2023-06-11 06:44] LABS: BUN/Creatinine Ratio 8.6 (10.0-20.0); Blood Urea Nitrogen < 5 mg/dL (9-23); Glucose 102 mg/dL (74-106)
[2023-06-11 08:00] VITALS: PULSE 82; RESP 18; O2SAT 93
[2023-06-11] MEDS: HYDROmorphone HCL 2 MG/ML VL/or syr IV PRN ×2 (08:18→15:26)
[2023-06-11] MEDS: PANTOPRAZOLE 40 MG/10 ML VIAL INJ IV SCH (08:18)
[2023-06-11] MEDS: FLUCONAZOLE 100 MG TAB PO SCH (08:19)
[2023-06-11] MEDS ORDERED: fentaNYL CITRATE 100 MCG/2 ML VL IV ONE (08:45)
[2023-06-11] MEDS ORDERED: MIDAZOLAM HCL 2MG/2ML 2ml VIAL (1mg/ml) IV ONE (08:45)
[2023-06-11 09:00] VITALS: BP 141/76; PULSE 82; RESP 16; TEMP 98.3; O2SAT 92
[2023-06-11] MEDS ORDERED: LIDOCAINE 2%HCL (LOCAL ANESTH.) INJ 10ml MDV ONE (09:00)
[2023-06-11] MEDS: HYDROcodone-ACET 5/325MG TAB PO PRN (10:36)
[2023-06-11 13:00] VITALS: BP 129/71; PULSE 78; RESP 18; TEMP 98.4; O2SAT 96
[2023-06-11 17:24] VITALS: BP 142/84; PULSE 71; RESP 19; TEMP 98.3; O2SAT 93
[2023-06-11 22:00] VITALS: BP 128/77; PULSE 78; RESP 22; TEMP 98.6; O2SAT 96
[2023-06-12] MEDS: PIPERACILLIN-TAZOB 3.375GM 100 ML IV SCH ×5 (00:30→23:56)
[2023-06-12] MEDS: HYDROmorphone HCL 2 MG/ML VL/or syr IV PRN ×3 (04:59→18:31)
[2023-06-12 05:00] VITALS: BP 126/79; PULSE 88; RESP 20; TEMP 98; O2SAT 95
[2023-06-12] MEDS: ONDANSETRON HCL 4 MG/2 ML VIAL IV PRN ×2 (05:57→10:38)
[2023-06-12 07:30] VITALS: PULSE 72; RESP 18; O2SAT 95
[2023-06-12 08:00] VITALS: BP 135/75; PULSE 73; RESP 16; TEMP 97.9; O2SAT 92
[2023-06-12] MEDS: PANTOPRAZOLE 40 MG/10 ML VIAL INJ IV SCH (10:38)
[2023-06-12] MEDS: FLUCONAZOLE 100 MG TAB PO SCH (10:39)
[2023-06-12 12:00] VITALS: BP 142/83; PULSE 78; RESP 18; TEMP 97.5; O2SAT 96
[2023-06-12 16:00] VITALS: BP 120/63; PULSE 83; RESP 18; TEMP 97.7; O2SAT 98
[2023-06-12 22:00] VITALS: BP 110/62; PULSE 83; RESP 20; TEMP 98.2; O2SAT 94
[2023-06-13] VITALS (8 sets, daily range): BP systolic 111–168; BP diastolic 59–90; PULSE 74–95; RESP 16–20; TEMP 97.6–98.8; O2SAT 93–100
[2023-06-13] MEDS: PIPERACILLIN-TAZOB 3.375GM 100 ML IV SCH ×4 (05:10→23:48)
[2023-06-13] MEDS: HYDROmorphone HCL 2 MG/ML VL/or syr IV PRN ×2 (05:19→17:39)
[2023-06-13] MEDS: FLUCONAZOLE 100 MG TAB PO SCH (10:18)
[2023-06-13] MEDS: PANTOPRAZOLE 40 MG/10 ML VIAL INJ IV SCH (10:19)
[2023-06-13] MEDS ORDERED: ENOXAPARIN SOD 100 MG/1 ML SYRINGE SC ONE ×2 (12:30→13:00)
[2023-06-13] MEDS: HYDROcodone-ACET 5/325MG TAB PO PRN ×2 (12:44→21:34)
[2023-06-13] MEDS ORDERED: LIDOCAINE 2%HCL (LOCAL ANESTH.) INJ 20ML MDV ONE (16:35)
[2023-06-13] MEDS ORDERED: HEPARIN 1,000 UNITS/ml 1ML VIAL ONE (17:04)
[2023-06-13] MEDS: ENOXAPARIN SOD 100 MG/1 ML SYRINGE SC SCH (21:25)
[2023-06-13] MEDS ORDERED: ENOXAPARIN SOD 100 MG/1 ML SYRINGE SC SCH (22:00)
[2023-06-14] MEDS: HYDROmorphone HCL 2 MG/ML VL/or syr IV PRN ×2 (04:11→12:01)
[2023-06-14 05:00] VITALS: BP 138/72; PULSE 72; RESP 18; TEMP 98; O2SAT 94
[2023-06-14] MEDS: PIPERACILLIN-TAZOB 3.375GM 100 ML IV SCH ×3 (05:08→19:00)
[2023-06-14 06:28] LABS: Basophils # (auto) 0 10 ^3/uL (0-0.2); Eosinophils # (auto) 0.2 10 ^3/uL (0-0.8); Hemoglobin 11.9 g/dL (12.2-16.2); Lymphocytes # (auto) 2.1 10 ^3/uL (0.4-5.4); Neutrophils # (auto) 3.4 10 ^3/uL (1.6-8.6); White Blood Cell 6.3 10^3/uL (4.4-10.8)
[2023-06-14 06:36] LABS: Basophils % (auto) 0.7 % (0.0-2.0); Eosinophils % (auto) 3.1 % (0.0-7.0); Hematocrit 36.1 % (36.0-46.0); Lymphocytes % (auto) 33.3 % (10.0-50.0); Mean Corpuscular Hemoglobin 28.7 pg (28.0-32.0); Mean Corpuscular Hgb Conc. 32.8 g/dL (32.0-36.0); Mean Corpuscular Volume 87.4 fL (80.0-100.0); Monocytes # (auto) 0.5 10 ^3/uL (0-1.3); Monocytes % (auto) 8.4 % (0.0-12.0); Neutrophils % (auto) 54.5 % (37.0-80.0); Nucleated Red Blood Cells % 0.1 %; Red Blood Cells 4.13 10^6/uL (4.0-5.20)
[2023-06-14 06:52] LABS: Chloride 108 mmol/L (98-107); Potassium 3.6 mmol/L (3.5-5.1); Sodium 138 mmol/L (136-145)
[2023-06-14 06:56] LABS: Calcium 8.6 mg/dL (8.7-10.4)
[2023-06-14 07:04] LABS: BUN/Creatinine Ratio 10.5 (10.0-20.0); Blood Urea Nitrogen 6 mg/dL (9-23); Glucose 97 mg/dL (74-106)
[2023-06-14 07:15] LABS: Anion Gap 8 (5-15); Carbon Dioxide 22 mmol/L (20-30)
[2023-06-14 08:00] VITALS: BP 156/80; PULSE 73; RESP 18; TEMP 97.9; O2SAT 94; O2SAT 95
[2023-06-14] MEDS: ENOXAPARIN SOD 100 MG/1 ML SYRINGE SC SCH ×2 (11:45→21:40)
[2023-06-14] MEDS: FLUCONAZOLE 100 MG TAB PO SCH (11:45)
[2023-06-14] MEDS: PANTOPRAZOLE 40 MG/10 ML VIAL INJ IV SCH (11:45)
[2023-06-14 12:00] VITALS: BP 132/80; PULSE 75; RESP 18; TEMP 97.8; O2SAT 96
[2023-06-14] MEDS: HYDROcodone-ACET 5/325MG TAB PO PRN (16:27)
[2023-06-14 17:00] VITALS: BP 126/65; PULSE 86; RESP 18; TEMP 98.4; O2SAT 95
[2023-06-14 21:38] VITALS: BP 144/69; PULSE 86; RESP 16; TEMP 98.4; O2SAT 97
[2023-06-15] MEDS: PIPERACILLIN-TAZOB 3.375GM 100 ML IV SCH ×5 (00:57→23:03)
[2023-06-15 05:00] VITALS: BP 150/72; PULSE 74; RESP 18; TEMP 98; O2SAT 96
[2023-06-15] MEDS: HYDROcodone-ACET 5/325MG TAB PO PRN (06:35)
[2023-06-15 08:30] VITALS: RESP 20; O2SAT 95
[2023-06-15 09:00] VITALS: BP 161/77; PULSE 70; RESP 20; TEMP 98.4; O2SAT 95
[2023-06-15] MEDS ORDERED: HYDROmorphone HCL 2 MG/ML VL/or syr IV PRN (10:00)
[2023-06-15] MEDS: ENOXAPARIN SOD 100 MG/1 ML SYRINGE SC SCH ×2 (10:24→23:03)
[2023-06-15] MEDS: PANTOPRAZOLE 40 MG/10 ML VIAL INJ IV SCH (10:24)
[2023-06-15] MEDS: FLUCONAZOLE 100 MG TAB PO SCH (10:24)
[2023-06-15] MEDS: ACETAMINOPHEN 325 MG TAB PO PRN (10:24)
[2023-06-15 11:18] LABS: Basophils # (auto) 0.1 10 ^3/uL (0-0.2); Basophils % (auto) 1.4 % (0.0-2.0); Eosinophils # (auto) 0.1 10 ^3/uL (0-0.8); Eosinophils % (auto) 1.7 % (0.0-7.0); Hematocrit 38.1 % (36.0-46.0); Hemoglobin 12.5 g/dL (12.2-16.2); Lymphocytes # (auto) 2.1 10 ^3/uL (0.4-5.4); Lymphocytes % (auto) 30.6 % (10.0-50.0); Mean Corpuscular Hemoglobin 28.4 pg (28.0-32.0); Mean Corpuscular Hgb Conc. 32.7 g/dL (32.0-36.0); Mean Corpuscular Volume 86.9 fL (80.0-100.0); Monocytes # (auto) 0.4 10 ^3/uL (0-1.3); Monocytes % (auto) 5.6 % (0.0-12.0); Neutrophils # (auto) 4.1 10 ^3/uL (1.6-8.6); Neutrophils % (auto) 60.7 % (37.0-80.0); Red Blood Cells 4.38 10^6/uL (4.0-5.20); Red Cell Distribution Width 13.9 % (11.8-14.3); White Blood Cell 6.7 10^3/uL (4.4-10.8)
[2023-06-15 11:26] LABS: Alanine Aminotransferase 52 U/L (7-40); Alkaline Phosphatase 125 U/L (46-116); Anion Gap 8 (5-15); Aspartate Aminotransferase 36 U/L (13-40); BUN/Creatinine Ratio 11.1 (10.0-20.0); Bilirubin, Total 0.4 mg/dL (0.2-1.0); Blood Urea Nitrogen 6 mg/dL (9-23); Calcium 9.1 mg/dL (8.7-10.4); Carbon Dioxide 24 mmol/L (20-30); Chloride 109 mmol/L (98-107); Glucose 95 mg/dL (74-106); Potassium 3.4 mmol/L (3.5-5.1); Sodium 141 mmol/L (136-145)
[2023-06-15 11:27] LABS: Total Protein 7.6 g/dL (5.7-8.2)
[2023-06-15 13:00] VITALS: BP 154/76; PULSE 74; RESP 18; TEMP 98.1; O2SAT 94
[2023-06-15 17:00] VITALS: BP 159/84; PULSE 69; RESP 18; TEMP 97.2; O2SAT 95
[2023-06-15 22:00] VITALS: BP 165/79; PULSE 70; RESP 19; TEMP 98.7; O2SAT 93
[2023-06-16] VITALS (7 sets, daily range): BP systolic 132–144; BP diastolic 72–83; PULSE 74–85; RESP 17–20; TEMP 98.3–99.2; O2SAT 94–98
[2023-06-16] MEDS: PIPERACILLIN-TAZOB 3.375GM 100 ML IV SCH ×3 (05:21→18:39)
[2023-06-16 06:05] LABS: Basophils # (auto) 0 10 ^3/uL (0-0.2); Basophils % (auto) 0.9 % (0.0-2.0); Eosinophils # (auto) 0.2 10 ^3/uL (0-0.8); Eosinophils % (auto) 2.9 % (0.0-7.0); Hematocrit 36.4 % (36.0-46.0); Lymphocytes # (auto) 1.9 10 ^3/uL (0.4-5.4); Lymphocytes % (auto) 34.6 % (10.0-50.0); Mean Corpuscular Hemoglobin 28.4 pg (28.0-32.0); Mean Corpuscular Hgb Conc. 32.8 g/dL (32.0-36.0); Mean Corpuscular Volume 86.6 fL (80.0-100.0); Monocytes # (auto) 0.4 10 ^3/uL (0-1.3); Monocytes % (auto) 7.6 % (0.0-12.0); Nucleated Red Blood Cells % 0.1 %; Red Blood Cells 4.21 10^6/uL (4.0-5.20); Red Cell Distribution Width 13.8 % (11.8-14.3); White Blood Cell 5.6 10^3/uL (4.4-10.8)
[2023-06-16 06:12] LABS: Alanine Aminotransferase 54 U/L (7-40); Albumin 3.9 g/dL (3.2-4.8); Alkaline Phosphatase 119 U/L (46-116); Anion Gap 6 (5-15); Aspartate Aminotransferase 41 U/L (13-40); BUN/Creatinine Ratio 8.6 (10.0-20.0); Bilirubin, Total 0.5 mg/dL (0.2-1.0); Blood Urea Nitrogen 5 mg/dL (9-23); Calcium 9.4 mg/dL (8.5-10.1); Carbon Dioxide 24 mmol/L (20-30); Chloride 110 mmol/L (98-107); Glucose 100 mg/dL (74-106); Potassium 3.8 mmol/L (3.5-5.1); Sodium 140 mmol/L (136-145); Total Protein 7.2 g/dL (5.7-8.2)
[2023-06-16] MEDS ORDERED: HYDROmorphone HCL 2 MG/ML VL/or syr IV PRN (10:00)
[2023-06-16] MEDS: ENOXAPARIN SOD 100 MG/1 ML SYRINGE SC SCH ×2 (10:03→22:50)
[2023-06-16] MEDS: FLUCONAZOLE 100 MG TAB PO SCH (10:04)
[2023-06-16] MEDS: HYDROcodone-ACET 5/325MG TAB PO PRN ×2 (10:04→18:39)
[2023-06-16] MEDS: PANTOPRAZOLE 40 MG TAB PO SCH (10:04)
[2023-06-16] MEDS: ACETAMINOPHEN 325 MG TAB PO PRN (14:40)
[2023-06-16] MEDS: DOCUSATE SOD 100 MG CAP PO SCH (22:49)
[2023-06-17] VITALS (7 sets, daily range): BP systolic 147–163; BP diastolic 73–87; PULSE 64–77; RESP 16–18; TEMP 97.7–99; O2SAT 94–96
[2023-06-17] MEDS: PIPERACILLIN-TAZOB 3.375GM 100 ML IV SCH ×3 (00:28→12:57)
[2023-06-17 06:53] LABS: Basophils # (auto) 0.1 10 ^3/uL (0-0.2); Basophils % (auto) 1.3 % (0.0-2.0); Eosinophils # (auto) 0.2 10 ^3/uL (0-0.8); Eosinophils % (auto) 2.9 % (0.0-7.0); Hematocrit 37.4 % (36.0-46.0); Hemoglobin 12.3 g/dL (12.2-16.2); Lymphocytes # (auto) 1.9 10 ^3/uL (0.4-5.4); Lymphocytes % (auto) 28.5 % (10.0-50.0); Mean Corpuscular Hemoglobin 28.8 pg (28.0-32.0); Mean Corpuscular Volume 87.2 fL (80.0-100.0); Monocytes # (auto) 0.4 10 ^3/uL (0-1.3); Monocytes % (auto) 6.5 % (0.0-12.0); Neutrophils % (auto) 60.8 % (37.0-80.0); Red Blood Cells 4.29 10^6/uL (4.0-5.20); Red Cell Distribution Width 13.7 % (11.8-14.3); White Blood Cell 6.6 10^3/uL (4.4-10.8)
[2023-06-17 07:01] LABS: Alanine Aminotransferase 68 U/L (7-40); Albumin 3.9 g/dL (3.2-4.8); Alkaline Phosphatase 122 U/L (46-116); Anion Gap 8 (5-15); Aspartate Aminotransferase 55 U/L (13-40); BUN/Creatinine Ratio 8.8 (10.0-20.0); Blood Urea Nitrogen 6 mg/dL (9-23); Calcium 9.3 mg/dL (8.5-10.1); Carbon Dioxide 23 mmol/L (20-30); Chloride 110 mmol/L (98-107); Glucose 99 mg/dL (74-106); Potassium 3.6 mmol/L (3.5-5.1); Sodium 141 mmol/L (136-145)
[2023-06-17 07:02] LABS: Bilirubin, Total 0.3 mg/dL (0.2-1.0); Total Protein 7.3 g/dL (5.7-8.2)
[2023-06-17] MEDS: FLUCONAZOLE 100 MG TAB PO SCH (10:24)
[2023-06-17] MEDS: PANTOPRAZOLE 40 MG TAB PO SCH (10:24)
[2023-06-17] MEDS: DOCUSATE SOD 100 MG CAP PO SCH ×2 (10:24→21:48)
[2023-06-17] MEDS: ENOXAPARIN SOD 100 MG/1 ML SYRINGE SC SCH ×2 (10:25→21:49)
[2023-06-17] MEDS: HYDROcodone-ACET 5/325MG TAB PO PRN (13:01)
[2023-06-17] MEDS ORDERED: AUG875T PO ×2 (13:15)
[2023-06-17] MEDS ORDERED: APIX5TAB PO ×3 (13:15)
[2023-06-17] MEDS: ACETAMINOPHEN 325 MG TAB PO PRN (17:51)
[2023-06-17] MEDS: AMOXICILLIN/CLAVUL 875 MG TAB PO SCH (21:48)
[2023-06-18] VITALS (7 sets, daily range): BP systolic 110–156; BP diastolic 54–85; PULSE 68–76; RESP 16–21; TEMP 97.6–98.3; O2SAT 93–97
[2023-06-18 05:50] LABS: Basophils # (auto) 0 10 ^3/uL (0-0.2); Basophils % (auto) 0.4 % (0.0-2.0); Eosinophils # (auto) 0.2 10 ^3/uL (0-0.8); Eosinophils % (auto) 3.6 % (0.0-7.0); Hematocrit 38.4 % (36.0-46.0); Hemoglobin 12.5 g/dL (12.2-16.2); Lymphocytes # (auto) 2.4 10 ^3/uL (0.4-5.4); Lymphocytes % (auto) 36.4 % (10.0-50.0); Mean Corpuscular Hemoglobin 28.3 pg (28.0-32.0); Mean Corpuscular Hgb Conc. 32.5 g/dL (32.0-36.0); Mean Corpuscular Volume 87.2 fL (80.0-100.0); Monocytes # (auto) 0.4 10 ^3/uL (0-1.3); Monocytes % (auto) 6.3 % (0.0-12.0); Neutrophils # (auto) 3.5 10 ^3/uL (1.6-8.6); Neutrophils % (auto) 53.3 % (37.0-80.0); Nucleated Red Blood Cells % 0.1 %; Red Cell Distribution Width 13.7 % (11.8-14.3); White Blood Cell 6.5 10^3/uL (4.4-10.8)
[2023-06-18 05:59] LABS: Alanine Aminotransferase 110 U/L (7-40); Alkaline Phosphatase 124 U/L (46-116); Anion Gap 7 (5-15); Aspartate Aminotransferase 92 U/L (13-40); BUN/Creatinine Ratio 10.8 (10.0-20.0); Blood Urea Nitrogen 7 mg/dL (9-23); Calcium 9.2 mg/dL (8.7-10.4); Carbon Dioxide 24 mmol/L (20-30); Chloride 109 mmol/L (98-107); Glucose 93 mg/dL (74-106); Sodium 140 mmol/L (136-145)
[2023-06-18 06:00] LABS: Bilirubin, Total 0.2 mg/dL (0.2-1.0); Total Protein 7.4 g/dL (5.7-8.2)
[2023-06-18] MEDS ORDERED: LIDOCAINE 1% HCL (LOCAL ANESTH.) INJ 20ML MDV ONE (09:24)
[2023-06-18] MEDS: DOCUSATE SOD 100 MG CAP PO SCH ×2 (09:42→21:48)
[2023-06-18] MEDS: HYDROcodone-ACET 5/325MG TAB PO PRN ×2 (09:42→18:59)
[2023-06-18] MEDS: PANTOPRAZOLE 40 MG TAB PO SCH (09:42)
[2023-06-18] MEDS: ENOXAPARIN SOD 100 MG/1 ML SYRINGE SC SCH (09:42)
[2023-06-18] MEDS: AMOXICILLIN/CLAVUL 875 MG TAB PO SCH ×2 (09:51→21:48)
[2023-06-18] MEDS ORDERED: LISINOPRIL 20 MG TAB PO ONE (10:30)
[2023-06-18] MEDS ORDERED: LISI20TA56 PO (10:31)
[2023-06-18 15:38] LABS: Rapid Influenza A Negative (Negative); Rapid Influenza B Negative (Negative)
[2023-06-18 15:39] LABS: COVID19 ANTIGEN SOFIA FIA NEGATIVE (NEGATIVE)
[2023-06-18] MEDS: APIXABAN 5 MG TAB PO SCH (21:48)
[2023-06-19] VITALS (7 sets, daily range): BP systolic 115–151; BP diastolic 54–78; PULSE 66–81; RESP 18–19; TEMP 97.8–98.3; O2SAT 95–98
[2023-06-19 06:51] LABS: Alanine Aminotransferase 134 U/L (7-40); Albumin 3.9 g/dL (3.2-4.8); Alkaline Phosphatase 117 U/L (46-116); Anion Gap 6 (5-15); Aspartate Aminotransferase 106 U/L (13-40); BUN/Creatinine Ratio 15.3 (10.0-20.0); Bilirubin, Total 0.4 mg/dL (0.2-1.0); Blood Urea Nitrogen 9 mg/dL (9-23); Calcium 9.4 mg/dL (8.5-10.1); Carbon Dioxide 24 mmol/L (20-30); Chloride 110 mmol/L (98-107); Glucose 92 mg/dL (74-106); Sodium 140 mmol/L (136-145); Total Protein 7.1 g/dL (5.7-8.2)
[2023-06-19] MEDS: DOCUSATE SOD 100 MG CAP PO SCH ×2 (09:56→21:36)
[2023-06-19] MEDS: LISINOPRIL 20 MG TAB PO SCH (09:56)
[2023-06-19] MEDS: PANTOPRAZOLE 40 MG TAB PO SCH (09:56)
[2023-06-19] MEDS: APIXABAN 5 MG TAB PO SCH ×2 (09:56→21:37)
[2023-06-19] MEDS: AMOXICILLIN/CLAVUL 875 MG TAB PO SCH (09:57)
[2023-06-19] MEDS: HYDROcodone-ACET 5/325MG TAB PO PRN (09:57)
[2023-06-19] MEDS ORDERED: HYDROmorphone HCL 2 MG/ML VL/or syr IV PRN (19:15)
[2023-06-20] VITALS (7 sets, daily range): BP systolic 124–140; BP diastolic 58–76; PULSE 65–79; RESP 18–22; TEMP 97.2–98.4; O2SAT 95–98
[2023-06-20 07:17] LABS: Alanine Aminotransferase 169 U/L (7-40); Albumin 3.9 g/dL (3.2-4.8); Alkaline Phosphatase 115 U/L (46-116); Anion Gap 9 (5-15); Aspartate Aminotransferase 121 U/L (13-40); BUN/Creatinine Ratio 16.7 (10.0-20.0); Blood Urea Nitrogen 10 mg/dL (9-23); Calcium 9.4 mg/dL (8.5-10.1); Carbon Dioxide 22 mmol/L (20-30); Chloride 110 mmol/L (98-107); Glucose 97 mg/dL (74-106); Potassium 3.9 mmol/L (3.5-5.1); Sodium 141 mmol/L (136-145)
[2023-06-20 07:18] LABS: Bilirubin, Total 0.3 mg/dL (0.2-1.0); Total Protein 7.1 g/dL (5.7-8.2)
[2023-06-20] MEDS: PANTOPRAZOLE 40 MG TAB PO SCH (12:24)
[2023-06-20] MEDS: APIXABAN 5 MG TAB PO SCH ×2 (12:24→23:07)
[2023-06-20] MEDS: DOCUSATE SOD 100 MG CAP PO SCH ×2 (12:25→23:07)
[2023-06-20] MEDS: LISINOPRIL 20 MG TAB PO SCH (12:25)
[2023-06-21] VITALS (7 sets, daily range): BP systolic 109–166; BP diastolic 60–77; PULSE 66–77; RESP 16–20; TEMP 97.6–98.6; O2SAT 95–96
[2023-06-21 06:37] LABS: Alanine Aminotransferase 160 U/L (7-40); Alkaline Phosphatase 111 U/L (46-116); Anion Gap 8 (5-15); BUN/Creatinine Ratio 15.8 (10.0-20.0); Blood Urea Nitrogen 9 mg/dL (9-23); Calcium 8.9 mg/dL (8.7-10.4); Carbon Dioxide 23 mmol/L (20-30); Chloride 110 mmol/L (98-107); Glucose 96 mg/dL (74-106); Lipase 60 U/L (12-53); Potassium 3.8 mmol/L (3.5-5.1); Sodium 141 mmol/L (136-145)
[2023-06-21 06:39] LABS: Albumin 3.9 g/dL (3.2-4.8); Aspartate Aminotransferase 86 U/L (13-40); Bilirubin, Total 0.3 mg/dL (0.2-1.0); Total Protein 7.1 g/dL (5.7-8.2)
[2023-06-21 06:48] LABS: Magnesium 1.9 mg/dL (1.6-2.6)
[2023-06-21] MEDS: DOCUSATE SOD 100 MG CAP PO SCH ×2 (11:27→21:58)
[2023-06-21] MEDS: PANTOPRAZOLE 40 MG TAB PO SCH (11:28)
[2023-06-21] MEDS: LISINOPRIL 20 MG TAB PO SCH (11:28)
[2023-06-21] MEDS: APIXABAN 5 MG TAB PO SCH ×2 (13:27→21:58)
[2023-06-22] VITALS (7 sets, daily range): BP systolic 110–151; BP diastolic 66–76; PULSE 68–80; RESP 16–22; TEMP 97.8–98.2; O2SAT 96–98
[2023-06-22] MEDS: PANTOPRAZOLE 40 MG TAB PO SCH (09:17)
[2023-06-22] MEDS: APIXABAN 5 MG TAB PO SCH ×2 (09:17→21:12)
[2023-06-22] MEDS: DOCUSATE SOD 100 MG CAP PO SCH ×2 (09:18→21:11)
[2023-06-22] MEDS: LISINOPRIL 20 MG TAB PO SCH (09:18)
[2023-06-23 05:00] VITALS: BP 145/69; PULSE 69; RESP 20; TEMP 98.3; O2SAT 97
[2023-06-23 06:42] LABS: Alanine Aminotransferase 98 U/L (7-40); Alkaline Phosphatase 96 U/L (46-116); Anion Gap 5 (5-15); Aspartate Aminotransferase 30 U/L (13-40); BUN/Creatinine Ratio 18.4 (10.0-20.0); Blood Urea Nitrogen 9 mg/dL (9-23); Calcium 8.7 mg/dL (8.7-10.4); Carbon Dioxide 24 mmol/L (20-30); Chloride 111 mmol/L (98-107); Glucose 94 mg/dL (74-106); Lipase 65 U/L (12-53); Potassium 3.6 mmol/L (3.5-5.1); Sodium 140 mmol/L (136-145)
[2023-06-23 06:43] LABS: Albumin 3.8 g/dL (3.2-4.8)
[2023-06-23 06:44] LABS: Bilirubin, Total 0.3 mg/dL (0.2-1.0); Total Protein 6.8 g/dL (5.7-8.2)
[2023-06-23 08:00] VITALS: RESP 16
[2023-06-23 09:00] VITALS: BP 155/84; PULSE 84; RESP 20; TEMP 98.5; O2SAT 98
[2023-06-23] MEDS: APIXABAN 5 MG TAB PO SCH (10:16)
[2023-06-23] MEDS: DOCUSATE SOD 100 MG CAP PO SCH (10:16)
[2023-06-23] MEDS: PANTOPRAZOLE 40 MG TAB PO SCH (10:17)
[2023-06-23] MEDS: LISINOPRIL 20 MG TAB PO SCH (10:18)
== END 2023-06-23 14:30 | disposition home or self-care (01) | DRG 710 ==
LOC: ER 11:34 → WEST WING 19:07 → OVERFLOW 19:07 → WEST WING 21:37 → EAST 06-08 02:30
PROVIDERS: ADMIT Nurse Practitioner Family; ATTEND Internal Medicine Geriatric Medicine
PROC: 05HB33Z Insertion of Infusion Device into Right Basilic Vein, Percutaneous Approach (ICD-10-PCS; 2023-06-03)
PROC: B54MZZA Ultrasonography of Right Upper Extremity Veins, Guidance (ICD-10-PCS; 2023-06-03)
PROC: 0UT04ZZ Resection of Right Ovary, Percutaneous Endoscopic Approach (ICD-10-PCS; 2023-06-05)
PROC: 0UT54ZZ Resection of Right Fallopian Tube, Percutaneous Endoscopic Approach (ICD-10-PCS; principal; 2023-06-05 09:49)
PROC: 05HA33Z Insertion of Infusion Device into Left Brachial Vein, Percutaneous Approach (ICD-10-PCS; 2023-06-08)
PROC: B54NZZA Ultrasonography of Left Upper Extremity Veins, Guidance (ICD-10-PCS; 2023-06-08)
PROC: 0W9J30Z Drainage of Pelvic Cavity with Drainage Device, Percutaneous Approach (ICD-10-PCS; 2023-06-11)
PROC: 0JH63XZ Insertion of Tunneled Vascular Access Device into Chest Subcutaneous Tissue and Fascia, Percutaneous Approach (ICD-10-PCS; 2023-06-14)
PROC: 02HV33Z Insertion of Infusion Device into Superior Vena Cava, Percutaneous Approach (ICD-10-PCS; 2023-06-14)
PROC: B518ZZA Fluoroscopy of Superior Vena Cava, Guidance (ICD-10-PCS; 2023-06-14)
PROC: B548ZZA Ultrasonography of Superior Vena Cava, Guidance (ICD-10-PCS; 2023-06-14)
PROC: 0JPV3XZ Removal of Tunneled Vascular Access Device from Upper Extremity Subcutaneous Tissue and Fascia, Percutaneous Approach (ICD-10-PCS; 2023-06-18)
PROC: 02PY33Z Removal of Infusion Device from Great Vessel, Percutaneous Approach (ICD-10-PCS; 2023-06-18)
DX: A41.9 Sepsis, unspecified organism (principal); J18.9 Pneumonia, unspecified organism; I82.623 Acute embolism and thrombosis of deep veins of upper extremity, bilateral; E87.1 Hypo-osmolality and hyponatremia; N70.01 Acute salpingitis; K76.0 Fatty (change of) liver, not elsewhere classified; N70.91 Salpingitis, unspecified; N30.00 Acute cystitis without hematuria; I10 Essential (primary) hypertension; E66.9 Obesity, unspecified; F32.A Depression, unspecified; F41.9 Anxiety disorder, unspecified; Z20.822 Contact with and (suspected) exposure to COVID-19; N12 Tubulo-interstitial nephritis, not specified as acute or chronic; E87.6 Hypokalemia; K52.9 Noninfective gastroenteritis and colitis, unspecified; K21.9 Gastro-esophageal reflux disease without esophagitis; N73.6 Female pelvic peritoneal adhesions (postinfective); N83.9 Noninflammatory disorder of ovary, fallopian tube and broad ligament, unspecified; K82.8 Other specified diseases of gallbladder; J98.11 Atelectasis; K80.20 Calculus of gallbladder without cholecystitis without obstruction; T82.868A Thrombosis due to vascular prosthetic devices, implants and grafts, initial encounter; Y82.8 Other medical devices associated with adverse incidents; Y92.230 Patient room in hospital as the place of occurrence of the external cause; T37.8X5A Adverse effect of other specified systemic anti-infectives and antiparasitics, initial encounter; Y92.238 Other place in hospital as the place of occurrence of the external cause; R74.01 Elevation of levels of liver transaminase levels; T39.1X5A Adverse effect of 4-Aminophenol derivatives, initial encounter; N73.9 Female pelvic inflammatory disease, unspecified; N70.11 Chronic salpingitis; T81.49XA Infection following a procedure, other surgical site, initial encounter; Z91.51 Personal history of suicidal behavior; Z56.0 Unemployment, unspecified; Z79.01 Long term (current) use of anticoagulants; Z79.899 Other long term (current) drug therapy; Z68.35 Body mass index [BMI] 35.0-35.9, adult
CPT/HCPCS: 36415; 36558; 36589; 71045; 71046; 72192; 74177; 75989; 76705; 76775; 76856; 76937; 77001; 78226; 80048; 80053; 80061; 80074; 81001; 82962; 83036; 83605; 83690; 83735; 84443; 84702; 85025; 85048; 85610; 85730; 86304; 87040; 87045; 87081; 87086; 87177; 87205; 87426; 87493; 87804; 93971; 96361; 96365; 96367; 96375; 97110; 97116; 97163; 97530; 99152; C1894; C9113; G0378; J0330; J1100; J1885; J2001; J2185; J2250; J2405; J2543; J3490

== ENCOUNTER 2023-11-12 09:53 | Inpatient (IN) | payer MEDICAID ==
[2023-11-10 10:40] LABS: Urine Bacteria None Seen /hpf (None Seen)
[2023-11-10 12:16] LABS: Urine Blood 1+ /uL (Negative); Urine Clarity Clear (Clear); Urine Color Yellow (Yellow); Urine Mucus FEW (None Seen); Urine Protein, UAD Negative (Negative); Urine Specific Gravity 1.024 (1.001-1.035); Urine Urobilinogen Normal (Negative); Urine WBC 6 /hpf (0 - 5)
[2023-11-10 12:24] LABS: Basophils # (auto) 0.1 10 ^3/uL (0-0.2); Basophils % (auto) 0.8 % (0.0-2.0); Eosinophils # (auto) 0.2 10 ^3/uL (0-0.8); Eosinophils % (auto) 2.6 % (0.0-7.0); Hematocrit 40.4 % (36.0-46.0); Hemoglobin 13.5 g/dL (12.2-16.2); Lymphocytes # (auto) 2.6 10 ^3/uL (0.4-5.4); Lymphocytes % (auto) 29.4 % (10.0-50.0); Mean Corpuscular Hemoglobin 28.9 pg (28.0-32.0); Mean Corpuscular Hgb Conc. 33.4 g/dL (32.0-36.0); Mean Corpuscular Volume 86.5 fL (80.0-100.0); Monocytes # (auto) 0.4 10 ^3/uL (0-1.3); Monocytes % (auto) 4.2 % (0.0-12.0); Neutrophils # (auto) 5.7 10 ^3/uL (1.6-8.6); Red Blood Cells 4.67 10^6/uL (4.0-5.20); Red Cell Distribution Width 13.5 % (11.8-14.3)
[2023-11-10 12:31] LABS: INR 0.95 (0.9-1.15); Partial Thromboplastin Time 27.5 SEC (24.5-34.5); Prothrombin Time 10.1 sec (9.3-11.8)
[2023-11-10 12:48] LABS: Alanine Aminotransferase 38 U/L (7-40); Albumin 4.5 g/dL (3.2-4.8); Alkaline Phosphatase 96 U/L (46-116); Anion Gap 6 (5-15); Aspartate Aminotransferase 19 U/L (13-40); BUN/Creatinine Ratio 21.4 (10.0-20.0); Bilirubin, Total 0.4 mg/dL (0.2-1.0); Blood Urea Nitrogen 12 mg/dL (9-23); Calcium 9.4 mg/dL (8.5-10.1); Carbon Dioxide 26 mmol/L (20-30); Chloride 107 mmol/L (98-107); Glucose 92 mg/dL (74-106); Potassium 3.7 mmol/L (3.5-5.1); Sodium 139 mmol/L (136-145); Total Protein 7.6 g/dL (5.7-8.2)
[~2023-11-12] VITALS: Ht 162.6 cm; Wt 93.2 kg
[~2023-11-12 09:53] MED LIST: APIX5TAB PO; ENAL5TAB85 PO
[2023-11-12] MEDS ORDERED: ceFAZolin 1GM/50ML 100 ML IV ONE (11:11)
[2023-11-12] MEDS ORDERED: SUGAMMADEX 200mg/2ml Vial (100MG/ML) IV ONE (12:06)
[2023-11-12] MEDS ORDERED: fentaNYL CITRATE 100 MCG/2 ML VL ONE (12:06)
[2023-11-12] MEDS ORDERED: KETOROLAC TROMETH 30 MG/ML 1ML VIAL ONE (12:06)
[2023-11-12] MEDS ORDERED: ONDANSETRON HCL 4 MG/2 ML VIAL ONE (12:06)
[2023-11-12] MEDS ORDERED: DexAMETHasone SOD PHOS 10MG/1ML VIAL INJ ONE (12:06)
[2023-11-12] MEDS ORDERED: KETAMINE 50mg/ML 1ml syringe ONE (12:06)
[2023-11-12] MEDS ORDERED: LIDOCAINE HCL 2 %PF INJ 10ML AMP IJ ONE (12:22)
[2023-11-12] MEDS ORDERED: BUPIVACAINE 0.5% MPF INJ 30ML SDV IJ ONE (12:29)
[2023-11-12] MEDS ORDERED: CELECOXIB 100 MG CAP ONE (12:31)
[2023-11-12] MEDS ORDERED: GABAPENTIN 400 MG CAP ONE (12:31)
[2023-11-12] MEDS: GABAPENTIN 400 MG CAP PO ONE (12:50)
[2023-11-12] MEDS: CELECOXIB 100 MG CAP PO ONE (12:55)
[2023-11-12] MEDS: ACETAMINOPHEN IV 1000 MG/100ML (10MG/ML) IV ONE (12:55)
[2023-11-12] MEDS: LIDOCAINE W/ EPINEPHRINE 1% 20ML VIAL ONE (13:43)
[2023-11-12] MEDS: BUPIVACAINE 0.5% MPF INJ 30ML SDV IJ ONE (13:43)
[2023-11-12] MEDS ORDERED: ACETAMINOPHEN/CODEINE#3 (300/30mg) TAB PO PRN (14:00)
[2023-11-12 14:03] VITALS: O2SAT 100
[2023-11-12] MEDS ORDERED: LABETALOL HCL 5 MG/ML 4ML SYRINGE IV PRN (14:15)
[2023-11-12] MEDS ORDERED: FLUMAZENIL 0.1 MG/ML INJ 10ML MDV IV PRN (14:15)
[2023-11-12] MEDS ORDERED: hydrALAZINE HCL 20 MG/ML VL IV PRN (14:15)
[2023-11-12] MEDS ORDERED: oxyCODONE HCL 5MG TAB PO PRN (14:15)
[2023-11-12] MEDS ORDERED: ePHEDrine SULFATE 50 MG/ML AMP IV PRN (14:15)
[2023-11-12] MEDS ORDERED: fentaNYL CITRATE 100 MCG/2 ML VL IV PRN (14:15)
[2023-11-12] MEDS ORDERED: NALOXONE HCL 0.4 MG/ML VIAL IV PRN (14:15)
[2023-11-12] MEDS: ONDANSETRON HCL 4 MG/2 ML VIAL IV PRN ×2 (14:31→19:12)
[2023-11-12] MEDS: HYDROmorphone HCL 2 MG/ML VL/or syr IV PRN ×2 (14:34→18:30)
[2023-11-12] MEDS ORDERED: SODIUM CHLORIDE 0.9% 1,000 ML IV SCH (14:45)
[2023-11-12 17:30] VITALS: BP 162/90; PULSE 68; RESP 19; TEMP 98.7
[2023-11-12 17:41] VITALS: PULSE 68; RESP 18; O2SAT 90
[2023-11-12] MEDS ORDERED: GLYCOPYRROLATE 0.2 MG/ML 1ML VIAL IV ONE (17:44)
[2023-11-12] MEDS: D5W/SOD CHL 0.45%/KCL 20MEQ 1,000 ML IV SCH (18:42)
[2023-11-12 20:00] VITALS: PULSE 90; RESP 22; O2SAT 99
[2023-11-12 21:00] VITALS: BP 122/61; PULSE 65; RESP 22; TEMP 97.6; O2SAT 99
[2023-11-13 01:00] VITALS: BP 127/72; PULSE 68; RESP 22; TEMP 97.8; O2SAT 99
[2023-11-13 05:00] VITALS: BP 126/81; PULSE 67; RESP 20; TEMP 98.3; O2SAT 94
[2023-11-13 06:52] LABS: Basophils # (auto) 0 10 ^3/uL (0-0.2); Basophils % (auto) 0.3 % (0.0-2.0); Eosinophils # (auto) 0 10 ^3/uL (0-0.8); Eosinophils % (auto) 0.1 % (0.0-7.0); Hemoglobin 12.5 g/dL (12.2-16.2); Lymphocytes # (auto) 1.5 10 ^3/uL (0.4-5.4); Lymphocytes % (auto) 12.5 % (10.0-50.0); Mean Corpuscular Hemoglobin 28.2 pg (28.0-32.0); Mean Corpuscular Hgb Conc. 31.9 g/dL (32.0-36.0); Mean Corpuscular Volume 88.3 fL (80.0-100.0); Monocytes # (auto) 0.6 10 ^3/uL (0-1.3); Neutrophils # (auto) 9.6 10 ^3/uL (1.6-8.6); Neutrophils % (auto) 82.1 % (37.0-80.0); Red Blood Cells 4.41 10^6/uL (4.0-5.20); Red Cell Distribution Width 13.6 % (11.8-14.3); White Blood Cell 11.7 10^3/uL (4.4-10.8)
[2023-11-13 07:11] LABS: Alanine Aminotransferase 57 U/L (7-40); Albumin 3.9 g/dL (3.2-4.8); Alkaline Phosphatase 81 U/L (46-116); Aspartate Aminotransferase 41 U/L (13-40); BUN/Creatinine Ratio 12.1 (10.0-20.0); Blood Urea Nitrogen 7 mg/dL (9-23); Calcium 9.1 mg/dL (8.5-10.1); Carbon Dioxide 24 mmol/L (20-30); Glucose 134 mg/dL (74-106)
[2023-11-13 07:12] LABS: Bilirubin, Total 0.5 mg/dL (0.2-1.0); Total Protein 6.7 g/dL (5.7-8.2)
[2023-11-13 07:20] LABS: Anion Gap 3 (5-15); Chloride 109 mmol/L (98-107); Potassium 3.9 mmol/L (3.5-5.1); Sodium 136 mmol/L (136-145)
[2023-11-13 09:00] VITALS: BP 107/71; PULSE 61; RESP 14; TEMP 98.2; O2SAT 96
[2023-11-13] MEDS: cefTRIAXone 1GM/50ML D5W 50 ML IV SCH (09:32)
[2023-11-13] MEDS: PANTOPRAZOLE 40 MG/10 ML VIAL INJ IV SCH (09:32)
[2023-11-13 13:00] VITALS: BP 100/54; PULSE 67; RESP 14; TEMP 98.2; O2SAT 95
[2023-11-13 17:00] VITALS: BP 123/71; PULSE 81; RESP 14; TEMP 98.3; O2SAT 96
[2023-11-13 17:17] VITALS: BP 100/54; PULSE 67; RESP 14; TEMP 98.2; O2SAT 95
== END 2023-11-13 17:45 | disposition home or self-care (01) | DRG 263 ==
LOC: SUR 09:53 → OVERFLOW 14:39 → WEST WING 17:32
PROVIDERS: ADMIT Internal Medicine; ATTEND Internal Medicine
PROC: 0FT44ZZ Resection of Gallbladder, Percutaneous Endoscopic Approach (ICD-10-PCS; principal; 2023-11-12 13:15)
DX: K80.64 Calculus of gallbladder and bile duct with chronic cholecystitis without obstruction (principal); E66.9 Obesity, unspecified; Z68.35 Body mass index [BMI] 35.0-35.9, adult; K82.8 Other specified diseases of gallbladder; K66.0 Peritoneal adhesions (postprocedural) (postinfection)
CPT/HCPCS: 36415; 80053; 81001; 84702; 85025; 85610; 85730; 86850; 86900; 86901; C9113; G0378; J0131; J1100; J1885; J2405; J3490

== ENCOUNTER → 2023-12-10 | Outpatient (CLI) | payer MEDICAID ==
[2023-12-10 11:55] LABS: Basophils # (auto) 0.1 10 ^3/uL (0-0.2); Basophils % (auto) 1.2 % (0.0-2.0); Eosinophils # (auto) 0.7 10 ^3/uL (0-0.8); Eosinophils % (auto) 6.9 % (0.0-7.0); Hematocrit 42.6 % (36.0-46.0); Hemoglobin 14.2 g/dL (12.2-16.2); Lymphocytes # (auto) 2.6 10 ^3/uL (0.4-5.4); Lymphocytes % (auto) 26.6 % (10.0-50.0); Mean Corpuscular Hemoglobin 28.7 pg (28.0-32.0); Mean Corpuscular Hgb Conc. 33.4 g/dL (32.0-36.0); Monocytes # (auto) 0.5 10 ^3/uL (0-1.3); Monocytes % (auto) 4.7 % (0.0-12.0); Neutrophils # (auto) 5.8 10 ^3/uL (1.6-8.6); Neutrophils % (auto) 60.6 % (37.0-80.0); Red Blood Cells 4.95 10^6/uL (4.0-5.20); Red Cell Distribution Width 13.7 % (11.8-14.3); White Blood Cell 9.6 10^3/uL (4.4-10.8)
[2023-12-10 12:31] LABS: Alanine Aminotransferase 41 U/L (7-40); Albumin 4.6 g/dL (3.2-4.8); Alkaline Phosphatase 103 U/L (46-116); Anion Gap 6 (5-15); Aspartate Aminotransferase 22 U/L (13-40); BUN/Creatinine Ratio 21.4 (10.0-20.0); Bilirubin, Total 0.5 mg/dL (0.2-1.0); Blood Urea Nitrogen 15 mg/dL (9-23); Calcium 9.8 mg/dL (8.7-10.4); Carbon Dioxide 30 mmol/L (20-30); Chloride 108 mmol/L (98-107); Glucose 110 mg/dL (74-106); Lipase 35 U/L (12-53); Potassium 3.8 mmol/L (3.5-5.1); Sodium 144 mmol/L (136-145); Total Protein 7.7 g/dL (5.7-8.2)
== END | disposition home or self-care (01) ==
LOC: ALLERGY 11:34
PROVIDERS: ATTEND Internal Medicine
DX: E11.22 Type 2 diabetes mellitus with diabetic chronic kidney disease (principal)
CPT/HCPCS: 36415; 80053; 82274; 82306; 83036; 83690; 85025; 85048; 87045; 87427; 87493

== ENCOUNTER 2023-12-24 14:48 | Inpatient (IN) | payer MEDICAID ==
[~2023-12-24] VITALS: Ht 152.4 cm; Wt 101.0 kg
[2023-12-24] MEDS: SODIUM CHLORIDE 0.9% 1,000 ML IVB ONE (16:18)
[2023-12-24 16:40] LABS: Basophils # (auto) 0.1 10 ^3/uL (0-0.2); Eosinophils # (auto) 0.5 10 ^3/uL (0-0.8); Eosinophils % (auto) 4.7 % (0.0-7.0); Hematocrit 39.6 % (36.0-46.0); Hemoglobin 13.3 g/dL (12.2-16.2); Lymphocytes # (auto) 2.8 10 ^3/uL (0.4-5.4); Lymphocytes % (auto) 28.7 % (10.0-50.0); Mean Corpuscular Hemoglobin 28.5 pg (28.0-32.0); Mean Corpuscular Hgb Conc. 33.7 g/dL (32.0-36.0); Mean Corpuscular Volume 84.7 fL (80.0-100.0); Monocytes # (auto) 0.5 10 ^3/uL (0-1.3); Neutrophils # (auto) 5.9 10 ^3/uL (1.6-8.6); Neutrophils % (auto) 60.6 % (37.0-80.0); Red Blood Cells 4.68 10^6/uL (4.0-5.20); White Blood Cell 9.8 10^3/uL (4.4-10.8)
[2023-12-24 17:02] LABS: Alanine Aminotransferase 48 U/L (7-40); Albumin 4.3 g/dL (3.2-4.8); Alkaline Phosphatase 91 U/L (46-116); Anion Gap 6 (5-15); Aspartate Aminotransferase 31 U/L (13-40); Bilirubin, Total 0.4 mg/dL (0.2-1.0); Blood Urea Nitrogen 12 mg/dL (9-23); Calcium 9.4 mg/dL (8.7-10.4); Carbon Dioxide 27 mmol/L (20-30); Chloride 109 mmol/L (98-107); Glucose 94 mg/dL (74-106); Lipase 34 U/L (12-53); Potassium 3.5 mmol/L (3.5-5.1); Sodium 142 mmol/L (136-145); Total Protein 7.4 g/dL (5.7-8.2)
[2023-12-24 17:32] VITALS: PULSE 74; RESP 18; O2SAT 96
[2023-12-24] MEDS: PROCHLORPERAZINE EDISYLATE 5 MG/ML 2ML VIAL IV ONE (17:47)
[2023-12-24] MEDS: KETOROLAC TROMETH 30 MG/ML 1ML VIAL IV ONE (17:47)
[2023-12-24 18:11] LABS: Urine Bacteria None Seen /hpf (None Seen)
[2023-12-24] MEDS ORDERED: ONDANSETRON HCL 4 MG/2 ML VIAL IV PRN (18:30)
[2023-12-24] MEDS ORDERED: HYDROcodone-ACET 5/325MG TAB PO PRN (18:30)
[2023-12-24] MEDS ORDERED: HYDROmorphone HCL 2 MG/ML VL/or syr IV PRN (18:30)
[2023-12-24] MEDS ORDERED: DOCUSATE SOD 100 MG CAP PO PRN (18:30)
[2023-12-24] MEDS ORDERED: ACETAMINOPHEN 325 MG TAB PO PRN (18:30)
[2023-12-24 18:44] LABS: Urine Blood Negative /uL (Negative); Urine Clarity Clear (Clear); Urine Color Yellow (Yellow); Urine Mucus FEW (None Seen); Urine Protein, UAD Negative (Negative); Urine Specific Gravity 1.028 (1.001-1.035); Urine Urobilinogen Normal (Negative); Urine WBC 2 /hpf (0 - 5); Urine pH 5.5 (5.0-9.0)
[2023-12-24] MEDS: IOHEXOL 350 MG/ML 100ML IJ ONE (19:18)
[2023-12-24 19:20] VITALS: PULSE 77; RESP 16; O2SAT 97
[2023-12-24] MEDS: SODIUM CHLOR 0.9% PF (SALINE LOCK) 10ML VIAL/SYR IV SCH (19:45)
[2023-12-24] MEDS: ASPirin 81 mg TAB PO SCH (20:30)
[2023-12-24] MEDS: LISINOPRIL 20 MG TAB PO SCH (20:30)
[2023-12-24] MEDS: APIXABAN 5 MG TAB PO SCH (20:34)
[2023-12-24 22:46] VITALS: PULSE 66; RESP 18; O2SAT 96
[2023-12-24 23:59] VITALS: BP 105/50; PULSE 66; TEMP 97.9; O2SAT 96
[2023-12-25] VITALS (8 sets, daily range): BP systolic 102–133; BP diastolic 50–75; PULSE 54–74; RESP 18–20; TEMP 97.5–98.2; O2SAT 95–97
[2023-12-25] MEDS ORDERED: ENOXAPARIN SOD 40 MG/0.4 ML SYRINGE SC SCH (10:00)
[2023-12-25 10:02] LABS: Basophils # (auto) 0.1 10 ^3/uL (0-0.2); Basophils % (auto) 0.9 % (0.0-2.0); Eosinophils # (auto) 0.3 10 ^3/uL (0-0.8); Eosinophils % (auto) 4.8 % (0.0-7.0); Hemoglobin 14.6 g/dL (12.2-16.2); Lymphocytes # (auto) 1.9 10 ^3/uL (0.4-5.4); Lymphocytes % (auto) 25.9 % (10.0-50.0); Mean Corpuscular Hgb Conc. 33.3 g/dL (32.0-36.0); Mean Corpuscular Volume 87.1 fL (80.0-100.0); Monocytes # (auto) 0.3 10 ^3/uL (0-1.3); Monocytes % (auto) 4.1 % (0.0-12.0); Neutrophils # (auto) 4.6 10 ^3/uL (1.6-8.6); Neutrophils % (auto) 64.3 % (37.0-80.0); Nucleated Red Blood Cells % 0.1 %; Red Blood Cells 5.05 10^6/uL (4.0-5.20); Red Cell Distribution Width 14.1 % (11.8-14.3); White Blood Cell 7.2 10^3/uL (4.4-10.8)
[2023-12-25 10:11] LABS: Alanine Aminotransferase 55 U/L (7-40); Albumin 4.4 g/dL (3.2-4.8); Alkaline Phosphatase 99 U/L (46-116); Anion Gap 9 (5-15); Aspartate Aminotransferase 34 U/L (13-40); BUN/Creatinine Ratio 15.6 (10.0-20.0); Blood Urea Nitrogen 10 mg/dL (9-23); Calcium 9.7 mg/dL (8.7-10.4); Carbon Dioxide 25 mmol/L (20-30); Chloride 109 mmol/L (98-107); Glucose 94 mg/dL (74-106); Potassium 3.6 mmol/L (3.5-5.1); Sodium 143 mmol/L (136-145)
[2023-12-25 10:12] LABS: Bilirubin, Total 0.8 mg/dL (0.2-1.0); Total Protein 7.6 g/dL (5.7-8.2)
[2023-12-26] VITALS (8 sets, daily range): BP systolic 114–133; BP diastolic 61–80; PULSE 61–73; RESP 17–20; TEMP 98.2–98.7; O2SAT 95–98
[2023-12-26] MEDS ORDERED: ASPI-325 PO (17:06)
[2023-12-26] MEDS ORDERED: ATOR20TA PO (17:06)
== END 2023-12-26 18:02 | disposition home or self-care (01) | DRG 861 ==
LOC: ER 14:48 → TELE 18:34 → TELE-CENTR 22:46
PROVIDERS: ADMIT Internal Medicine Geriatric Medicine; ATTEND Internal Medicine Geriatric Medicine
DX: G89.18 Other acute postprocedural pain (principal); G45.9 Transient cerebral ischemic attack, unspecified; I10 Essential (primary) hypertension; R10.31 Right lower quadrant pain; Z90.49 Acquired absence of other specified parts of digestive tract; Z79.52 Long term (current) use of systemic steroids
CPT/HCPCS: 36415; 70450; 70496; 70551; 76705; 78226; 80053; 81001; 83690; 85025; 87081; 93005; 96361; 96374; 96375; G0378; J1885

== ENCOUNTER → 2024-09-23 | Outpatient (CLI) | payer MEDICAID ==
[~2024-09-23] MED LIST changes: +ASPI-325 PO; +ATOR20TA PO
[2024-09-23 11:17] LABS: Basophils # (auto) 0.1 10 ^3/uL (0-0.2); Basophils % (auto) 1.1 % (0.0-2.0); Eosinophils # (auto) 0.3 10 ^3/uL (0-0.8); Eosinophils % (auto) 3.1 % (0.0-7.0); Hematocrit 41.2 % (36.0-46.0); Lymphocytes # (auto) 2.9 10 ^3/uL (0.4-5.4); Lymphocytes % (auto) 35.1 % (10.0-50.0); Mean Corpuscular Hemoglobin 28.7 pg (28.0-32.0); Mean Corpuscular Volume 84.6 fL (80.0-100.0); Monocytes # (auto) 0.4 10 ^3/uL (0-1.3); Neutrophils # (auto) 4.6 10 ^3/uL (1.6-8.6); Neutrophils % (auto) 55.7 % (37.0-80.0); Platelet Count (auto) 355 10^3/uL (140-450); Red Blood Cells 4.87 10^6/uL (4.0-5.20); Red Cell Distribution Width 13.4 % (11.8-14.3); White Blood Cell 8.3 10^3/uL (4.4-10.8)
[2024-09-23 11:27] LABS: Albumin 4.5 g/dL (3.2-4.8); Alkaline Phosphatase 112 U/L (46-116); Anion Gap 7 (5-15); Aspartate Aminotransferase 25 U/L (13-40); BUN/Creatinine Ratio 18.8 (10.0-20.0); Bilirubin, Total 0.4 mg/dL (0.2-1.0); Blood Urea Nitrogen 12 mg/dL (9-23); Calcium 9.7 mg/dL (8.7-10.4); Carbon Dioxide 27 mmol/L (20-31); Cholesterol 148 mg/dL (< 200); HDL Cholesterol 41 mg/dL (40-59); LDL Cholesterol 93 mg/dL (< 100); Sodium 142 mmol/L (136-145); Total Protein 7.4 g/dL (5.7-8.2); Urine Bacteria FEW /hpf (None Seen); Urine Blood Negative /uL (Negative); Urine Clarity Clear (Clear); Urine Color Yellow (Yellow); Urine Mucus FEW (None Seen); Urine Protein, UAD Negative (Negative); Urine Specific Gravity 1.027 (1.001-1.035); Urine Squamous Epithelial Cell FEW /hpf (<5); Urine Urobilinogen Normal (Negative); Urine WBC 1 /HPF (0-5); Urine pH 5.5 (5.0-9.0)
[2024-09-23 11:28] LABS: Alanine Aminotransferase 43 U/L (7-40); Chloride 108 mmol/L (98-107); Glucose 119 mg/dL (74-106); Potassium 3.4 mmol/L (3.5-5.1); Triglycerides 172 mg/dL (< 150)
[2024-09-23 11:32] LABS: Leuteinizing Hormone 27.5 IU/L
[2024-09-24 10:23] LABS: Hepatitis B Core Total AB Negative (Negative)
[2024-09-24 11:14] LABS: Hepatitis A Total Antibody Positive (Negative); Hepatitis B Surface Antibody Positive (Negative); Hepatitis B Surface Antigen Negative (Negative); Hepatitis C Antibody Negative (Negative)
== END | disposition home or self-care (01) ==
LOC: LAB 10:33
PROVIDERS: ATTEND Licensed Practical Nurse
DX: I10 Essential (primary) hypertension (principal); Z13.1 Encounter for screening for diabetes mellitus; Z12.11 Encounter for screening for malignant neoplasm of colon; E55.9 Vitamin D deficiency, unspecified; R53.83 Other fatigue; R74.01 Elevation of levels of liver transaminase levels
CPT/HCPCS: 36415; 80053; 80061; 81001; 82306; 82607; 82672; 83002; 83036; 84144; 84443; 85025; 86704; 86706; 86708; 86803; 87340

== ENCOUNTER 2024-11-05 09:25 | Inpatient (IN) | payer MEDICAID ==
[~2024-11-05] VITALS: Ht 162.6 cm; Wt 109.9 kg
--- NOTE | 2024-11-05 09:44 | ED.PDOC ---
History of Present Illness HPI Comments 49-year-old female with PMHx HTN presents with a chief complaint of abdominal pain x 3 days with associated nausea and vomiting. Patient states that her pain is localized to her RUQ, radiating to her flank, describes as sharp, and rates her pain a 9/10. Chief Complaint: Abdominal Pain Time Seen by MD: 09:40 Primary Care Provider: JESICA Fontanez Notes: Medications, Allergies Allergies: Coded Allergies: NO KNOWN ALLERGIES (Unverified , 05/26/23) Home Meds Active Scripts Atorvastatin Calcium (Lipitor) 20 Mg Tab, 20 MG PO DAILY for 30 Days, #30 TAB 2 Refills Prov:JED MANZANARES RESIDENT 12/26/23 Aspirin (Aspirin Low Dose) 81 Mg Tab, 81 MG PO DAILY for 30 Days, #30 TAB 2 Refills Prov:JED MANZANARES RESIDENT 12/26/23 Apixaban Base (ELIQUIS) 5 Mg Tab, 5 MG PO BID for 30 Days, #60 TAB 2 Refills Prov:NACHO MIRAMONTES MD 06/17/23 Reported Medications Enalapril Maleate (Vasotec) 5 Mg Tab, 10 MG PO UD, TAB 11/10/23 Information Source: Patient Mode of Arrival: Ambulatory Severity: Moderate Timing: Days Duration: Since onset Prehospital treatment: None Past Medical History PAST MEDICAL HISTORY: HTN, UTI'S 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 [employer]UCK [employer]PER[employer] Hx Family History Family History: Unknown Social History Smoker: Non-Smoker Alcohol: Denies ETOH Use Drugs: Denies Drug Use Lives In: Home Constitutional: denies: chills, diaphoresis, fatigue, fever, malaise, sweats, weakness, others EENTM: denies: blurred vision, double vision, ear bleeding, ear discharge, ear drainage, ear pain, ear ringing, eye pain, eye redness, hearing loss, mouth pain, mouth swelling, nasal discharge, nose bleeding, nose congestion, nose pain, photophobia, tearing, throat pain, throat swelling, voice changes, others Respiratory: denies: cough, hemoptysis, orthopnea, SOB at rest, shortness of breath, SOB with excertion, stridor, wheezing, others Cardiovascular: denies: chest pain, dizzy spells, diaphoresis, Dyspnea on exertion, edema, irregular heart beat, left arm pain, lightheadedness, palpitations, PND, syncope, others Gastrointestinal: reports: abdominal pain, nausea, vomiting; denies: abdomen distended, blood streaked bowels, constipated, diarrhea, dysphagia, difficulty swallowing, hematemesis, melena, poor appetite, poor fluid intake, rectal bleeding, rectal pain, others Genitourinary: denies: abnormal vagina bleeding, burning, dyspareunia, dysuria, flank pain, frequency, hematuria, incontinence, pain, , vagina discharge, urgency, others Neurological: denies: dizziness, fainting, headache, left sided numbness, left sided weakness, numbness, paresthesia, pre-existing deficit, right sided numbne ss, right sided weakness, seizure, speech problems, tingling, tremors, weakness, others Musculoskeletal: denies: back pain, gout, joint pain, joint swelling, muscle pain, muscle stiffness, neck pain, others Integumetry: denies: bruises, change in color, change in hair/nails, dryness, laceration, lesions, lumps, rash, wounds, others Allergic/Immunocompromised: denies: Difficulty Healing, Frequent Infections, Hives, Itching, others Hematologic/Lymphatic: denies: anemia, blood clots, easy bleeding, easy bruising, swollen glands, others Endocrine: denies: excessive hunger, excessive sweating, excessive thirst, excessive urination, flushing, intolerance to cold, intolerance to heat, unexplained weight gain, unexplained weight loss, others Psychiatric: denies: anxiety, bipolar disorder, depression, hopeless, panic disorder, schizophrenia, sleepless, suicidal, others All Other Systems: Reviewed and Negative Physical Exam General Appearance: No Apparent Distress, Normal HEENT: Normal ENT Inspection, Pharynx Normal, TMs Normal Neck: Full Range of Motion, Non-Tender, Normal, Normal Inspection Respiratory: Chest Non-Tender, Lungs Clear, No Accessory Muscle Use, No Respiratory Distress, Normal Breath Sounds Cardiovascular: No Edema, No JVD, No Murmur, No Gallop, Normal Peripheral Pulses, Regular Rate/Rhythm Breast Exam: Deferred Gastrointestinal: No Organomegaly, Non Tender, No Pulsatile Mass, Normal Bowel Sounds, Soft Genitalia: Deferred Pelvic: Deferred Rectal: Deferred Extremities: No calf tenderness, Normal capillary refill, Normal inspection, Normal range of motion, Non-tender, No pedal edema Musculoskeletal : Apperance: Normal Neurologic: Alert, information clerk cashier II-XII nml as Tested, No Motor Deficits, Normal Affect, Normal Mood, No Sensory Deficits Cerebellar Function: Normal Reflexes: Normal Skin: Dry, Normal Color, Warm Lymphatic: No Adenopathy Was a procedure done? Was a procedure done?: No Differential Dx Considerations may include: sbo,kidney stones, pyelonephritis, pneumonia, sbo, intraabdominal mass,colitis X-Ray, Labs, Meds, VS Vital Signs Date Time Temp Pulse Resp B/P (MAP) Pulse Ox O2 Delivery O2 Flow Rate FiO2 11/05/24 10:46 97.8 72 20 147/83 (104) 96 97.8 11/05/24 10:46 72 20 96 Room Air* 0 21 11/05/24 10:41 147/83 11/05/24 09:33 98.0 71 20 144/80 (101) 97 98.0 Lab Test 11/05/24 09:58 11/05/24 09:39 Range/Units White Blood Count 8.5 4.4-10.8 10^3/uL Red Blood Count 5.21 H 4.0-5.20 10^6/uL Hemoglobin 14.7 12.2-16.2 g/dL Hematocrit 43.8 36.0-46.0 % Mean Corpuscular Volume 84.1 80.0-100.0 fL Mean Corpuscular Hemoglobin 28.2 28.0-32.0 pg Mean Corpuscular Hemoglobin Concent 33.5 32.0-36.0 g/dL Red Cell Distribution Width 13.4 11.8-14.3 % Platelet Count 369 140-450 10^3/uL Mean Platelet Volume 7.2 6.9-10.8 fL Neutrophils (%) (Auto) 53.6 37.0-80.0 % Lymphocytes (%) (Auto) 35.9 10.0-50.0 % Monocytes (%) (Auto) 7.0 0.0-12.0 % Eosinophils (%) (Auto) 2.4 0.0-7.0 % Basophils (%) (Auto) 1.1 0.0-2.0 % Neutrophils # (Auto) 4.5 1.6-8.6 10 ^3/uL Lymphocytes # (Auto) 3.0 0.4-5.4 10 ^3/uL Monocytes # (Auto) 0.6 0-1.3 10 ^3/uL Eosinophils # (Auto) 0.2 0-0.8 10 ^3/uL Basophils # (Auto) 0.1 0-0.2 10 ^3/uL Nucleated Red Blood Cells 0.1 % Sodium Level 142 136-145 mmol/L Potassium Level 3.1 L 3.5-5.1 mmol/L Chloride Level 106 98-107 mmol/L Carbon Dioxide Level 26 20-31 mmol/L Anion Gap 10 5-15 Blood Urea Nitrogen 8 L 9-23 mg/dL Creatinine 0.64 0.550-1.02 mg/dL Glomerular Filtration Rate Calc 108 >90 mL/min BUN/Creatinine Ratio 12.5 10.0-20.0 Serum Glucose 94 74-106 mg/dL Calcium Level 9.1 8.7-10.4 mg/dL Total Bilirubin 0.6 0.2-1.0 mg/dL Aspartate Amino Transferase (AST) 35 H <34 U/L Alanine Aminotransferase (ALT) 44 H 7-40 U/L Alkaline Phosphatase 112 46-116 U/L Total Protein 7.5 5.7-8.2 g/dL Albumin 4.6 3.2-4.8 g/dL Lipase 31 12-53 U/L Urine Test Negative Negative Current Medications Medications (Trade) Dose Ordered Sig/Khadijah Route Start Time Stop Time Status Last Admin Fentanyl Citrate 25 mcg ONCE ONCE IM 11/05/24 09:45 11/05/24 09:46 DC 11/05/24 10:41 Time of 1ST Reevaluation: 10:10 Reevaluation 1ST: Unchanged Time of 2ND Reevaluation: 11:59 Reevaluation 2ND: Unchanged Patient Education/Counseling: Diagnosis, Treatment, Prognosis, Need For Follow Up Family Education/Counseling: No Family Present Comments pt has right uq and flank pain, but the workup is unremarkable. pt remains in pain and has no outpatient follow ups. she will be admitted for further evaluation for the intractable pain Departure 1 Departure Time of Disposition: 12:00 Impression: Primary Impression: Intractable abdominal pain Disposition: ADMITTED INPATIENT Admit to: Med Surg Condition: Stable Discharged With: Self Critical Care Note Critical Care Time?: Yes (55 min-critical care time only) Critical care comment: due to concerns for deterioration of patient's condition, the care required my highest level of attention and readiness. i assessed the patient's condition, reviewed relevant documents, communicated with medical personnel, ordered the proper tests and treatments, reassessed for results and response to treatments, spoke to family and consultants and formulated a plan of care Stability Stability form required: No Heart Score Heart Score: Heart Score Response (Comments) Value History N/A 0 EKG N/A 0 Age N/A 0 Risk Factors N/A 0 Troponin N/A 0 Total 0 I personally scribed for DAVID SHAW MD ([email or web address]) on 11/05/24 at 09:44. Electronically submitted by Bairon Wharton ([email or web address]). DAVID SHAW MD Nov 05, 2024 09:44
[2024-11-05 10:22] LABS: Basophils # (auto) 0.1 10 ^3/uL (0-0.2); Basophils % (auto) 1.1 % (0.0-2.0); Eosinophils # (auto) 0.2 10 ^3/uL (0-0.8); Eosinophils % (auto) 2.4 % (0.0-7.0); Hematocrit 43.8 % (36.0-46.0); Hemoglobin 14.7 g/dL (12.2-16.2); Lymphocytes % (auto) 35.9 % (10.0-50.0); Mean Corpuscular Hemoglobin 28.2 pg (28.0-32.0); Mean Corpuscular Hgb Conc. 33.5 g/dL (32.0-36.0); Mean Corpuscular Volume 84.1 fL (80.0-100.0); Monocytes # (auto) 0.6 10 ^3/uL (0-1.3); Neutrophils # (auto) 4.5 10 ^3/uL (1.6-8.6); Neutrophils % (auto) 53.6 % (37.0-80.0); Nucleated Red Blood Cells % 0.1 %; Platelet Count (auto) 369 10^3/uL (140-450); Red Blood Cells 5.21 10^6/uL (4.0-5.20); Red Cell Distribution Width 13.4 % (11.8-14.3); White Blood Cell 8.5 10^3/uL (4.4-10.8)
[2024-11-05 10:41] LABS: Albumin 4.6 g/dL (3.2-4.8); Alkaline Phosphatase 112 U/L (46-116); Anion Gap 10 (5-15); BUN/Creatinine Ratio 12.5 (10.0-20.0); Bilirubin, Total 0.6 mg/dL (0.2-1.0); Calcium 9.1 mg/dL (8.7-10.4); Carbon Dioxide 26 mmol/L (20-31); Chloride 106 mmol/L (98-107); Glucose 94 mg/dL (74-106); Lipase 31 U/L (12-53); Sodium 142 mmol/L (136-145); Total Protein 7.5 g/dL (5.7-8.2)
[2024-11-05] MEDS: fentaNYL CITRATE 100 MCG/2 ML VL IM ONE (10:41)
[2024-11-05 10:44] LABS: Alanine Aminotransferase 44 U/L (7-40); Aspartate Aminotransferase 35 U/L (<34); Blood Urea Nitrogen 8 mg/dL (9-23); Potassium 3.1 mmol/L (3.5-5.1)
[2024-11-05 10:46] VITALS: PULSE 72; RESP 20; O2SAT 96
--- NOTE | 2024-11-05 10:54 | DVH ---
EXAM: CT CT AB PEL WO CON-NO ORAL OR IV HISTORY: upper abdominal pain COMPARISON: CT CT AB PEL WO CON-NO ORAL OR IV on DOS: 08/31/23 TECHNIQUE: Helical CT images of the abdomen and pelvis were performed without IV contrast. Sagittal a nd coronal reformatted images were obtained. This CT exam was performed using one or more of the foll owing dose reduction techniques: Automated exposure control, adjustment of the mA and/or kv according to patient size, or the use of iterative reconstruction techniques. Radiation Dose: Abdomen/Pelvis: CTDIvol 23.06 mGy, DLP 1349.86 mGy*cm. FINDINGS: CT abdomen: There is mild interstitial prominence in the lung bases. The heart is mildly enlarged. The gallbladder is surgically absent. The liver is diffusely fatty density and measures 23 cm longit udinal. The noncontrast spleen, pancreas, kidneys, and adrenal glands are unremarkable. No abdominal aortic aneurysm. CT pelvis: No abnormal bowel dilatation, free air, or free fluid. The appendix and urinary bladder ar e unremarkable. There is moderate to advanced lower lumbar degenerative disc disease, with significan t neural foraminal stenosis at L4-L5 on the right and L5-S1 bilaterally. IMPRESSION: 1. Cardiomegaly and bilateral lower lobe interstitial prominence which may be due to CHF. 2. Postoperative changes of cholecystectomy. 3. Lower lumbar degenerative disc disease. 4. No evidence of bowel obstruction, acute appendicitis, or other acute process in the abdomen or pel vis.
[2024-11-05] MEDS: POTASSIUM CHL 20 Meq TABLET PO ONE (12:20)
[2024-11-05] MEDS: ONDANSETRON HCL 4 MG/2 ML VIAL IV ONE (20:10)
[2024-11-05] MEDS: MORPHINE SULFATE 4 MG/ML SYR/VIAL IV ONE (20:13)
[2024-11-05 23:00] LABS: Urine Bacteria None Seen /hpf (None Seen)
[2024-11-05] MEDS ORDERED: ACETAMINOPHEN 325 MG TAB PO PRN (23:00)
[2024-11-05 23:11] LABS: Urine Blood Negative /uL (Negative); Urine Clarity Clear (Clear); Urine Color Yellow (Yellow); Urine Mucus FEW (None Seen); Urine Protein, UAD Negative (Negative); Urine Specific Gravity 1.019 (1.001-1.035); Urine Squamous Epithelial Cell FEW /hpf (<5); Urine Urobilinogen Normal (Negative); Urine WBC 2 /HPF (0-5)
[2024-11-05 23:22] VITALS: BP 137/70; PULSE 63; RESP 17; O2SAT 99
[2024-11-05] MEDS: OXYCODONE W/ ACETAMINOPHEN 5/325MG TABLET PO PRN (23:39)
[2024-11-05] MEDS: LOSARTAN POTASSIUM 25 MG TAB PO ONE (23:40)
[2024-11-05] MEDS: ACYCLOVIR 400 MG TAB PO ONE (23:40)
[2024-11-06] MEDS: SODIUM CHLORIDE 0.9% 1,000 ML IV ONE (00:15)
--- NOTE | 2024-11-06 00:56 | DVHHPRES ---
History of Present Illness Resident Creating Document: MERCED BESTVELASQUEZ RESIDENT History of Present Illness Patient is a 49-year-old female with a past medical history of hypertension, dyslipidemia, generalized anxiety disorder presented to the ER with a chief complaint of right upper quadrant and right flank pain. Patient reports the pain started about 3 days ago, constant pain sharp in character and feels burning sensation and had associated few episodes of vomiting. Patient reports history of kidney stones and currently reports of increased frequency of urination and no burning micturition. In the last 3 days she also has diarrhea paroxysmally 3 to 4 times a day and liquid in consistency. Patient denied any blood in the vomitus or blood in the diarrhea. On examining the patient, a rash was noticed on the right side which was erythematous, irregular and patient reports that it appeared a day after the pain started. Patient does not remember that if she had chickenpox while she was young but she does report a few days ago she went to see her 's brother who is currently suffering from shingles. Past medical history: Hypertension, insomnia, generalized anxiety disorder Past surgical history: Cholecystectomy, right oophorectomy Social history: Patient denies smoking, alcohol, drug use Home medications: Atorvastatin, metoprolol succinate, aspirin, trazodone, rexulti Review of Systems Review of Systems Patient seen and examined at the bedside Reports of severe pain under the right breast extending from the right flank to the right upper back in a dermatomal pattern Denies nausea, vomiting Allergies: Coded Allergies: NO KNOWN ALLERGIES (Unverified , 05/26/23) Medications Current Medications Medications Dose Ordered Sig/Khadijah Route Start Time Stop Time Status Last Admin Dose Admin Oxycodone/ Acetaminophen 1 tab Q6HP PRN PO 11/05/24 23:00 11/05/24 23:39 1 TAB Acetaminophen 650 mg Q6HP PRN PO 11/05/24 23:00 Acyclovir 800 mg 5XD PO 11/06/24 06:00 Exam Vital Signs Vital Signs Date Time Temp Pulse Resp B/P (MAP) Pulse Ox O2 Delivery O2 Flow Rate FiO2 11/05/24 23:40 137/70 11/05/24 23:22 63 17 99 Room Air* 0 21 11/05/24 21:52 97.8 97.8 Exam Gen - no pallor, no icterus, no cyanosis, no clubbing, no LAD, no edema . Skin - Patients skin is warm and dry. HEENT - normocephalic, atraumatic, moist mucous membranes. Neck - full ROM, no LAD, no JVD Pulmonary - B/L equal breath sounds, no crackles, no wheezing, no stridor. cardiovascular - regular S1,S2 heard, no added sounds, no murmurs heard. peripheral pulses normal radial 2+, pedal 2+. capillary refill normal <2 secs. GI - soft abdomen with tenderness to palpation in the right upper quadrant extending through the right flank to the right back. no hepatospleenomegaly. Bowel sounds normoactive Rash seen in the right upper flank area about 5 cm X 4 cm in size with small vesicles Neurological - Patient is A/O X 3 . Bilateral upper extremity strength 5/5, bilateral lower extremity strength 5/5, no facial droop, normal speech, no tremor, no sensory deficiets. Labs/Xrays Labs Test 11/05/24 09:58 11/05/24 09:39 Range/Units White Blood Count 8.5 4.4-10.8 10^3/uL Red Blood Count 5.21 H 4.0-5.20 10^6/uL Hemoglobin 14.7 12.2-16.2 g/dL Hematocrit 43.8 36.0-46.0 % Mean Corpuscular Volume 84.1 80.0-100.0 fL Mean Corpuscular Hemoglobin 28.2 28.0-32.0 pg Mean Corpuscular Hemoglobin Concent 33.5 32.0-36.0 g/dL Red Cell Distribution Width 13.4 11.8-14.3 % Platelet Count 369 140-450 10^3/uL Mean Platelet Volume 7.2 6.9-10.8 fL Neutrophils (%) (Auto) 53.6 37.0-80.0 % Lymphocytes (%) (Auto) 35.9 10.0-50.0 % Monocytes (%) (Auto) 7.0 0.0-12.0 % Eosinophils (%) (Auto) 2.4 0.0-7.0 % Basophils (%) (Auto) 1.1 0.0-2.0 % Neutrophils # (Auto) 4.5 1.6-8.6 10 ^3/uL Lymphocytes # (Auto) 3.0 0.4-5.4 10 ^3/uL Monocytes # (Auto) 0.6 0-1.3 10 ^3/uL Eosinophils # (Auto) 0.2 0-0.8 10 ^3/uL Basophils # (Auto) 0.1 0-0.2 10 ^3/uL Nucleated Red Blood Cells 0.1 % Sodium Level 142 136-145 mmol/L Potassium Level 3.1 L 3.5-5.1 mmol/L Chloride Level 106 98-107 mmol/L Carbon Dioxide Level 26 20-31 mmol/L Anion Gap 10 5-15 Blood Urea Nitrogen 8 L 9-23 mg/dL Creatinine 0.64 0.550-1.02 mg/dL Glomerular Filtration Rate Calc 108 >90 mL/min BUN/Creatinine Ratio 12.5 10.0-20.0 Serum Glucose 94 74-106 mg/dL Calcium Level 9.1 8.7-10.4 mg/dL Total Bilirubin 0.6 0.2-1.0 mg/dL Aspartate Amino Transferase (AST) 35 H <34 U/L Alanine Aminotransferase (ALT) 44 H 7-40 U/L Alkaline Phosphatase 112 46-116 U/L Total Protein 7.5 5.7-8.2 g/dL Albumin 4.6 3.2-4.8 g/dL Lipase 31 12-53 U/L Urine Color Yellow Yellow Urine Clarity Clear Clear Urine pH 6.0 5.0-9.0 Urine Specific [place] 1.019 1.001-1.035 Urine Protein Negative Negative Urine Ketones Negative Negative Urine Blood Negative Negative /uL Urine Nitrite Negative Negative Urine Bilirubin Negative Negative Urine Urobilinogen Normal Negative mg/dL Urine Leukocyte Esterase Negative Negative /uL Urine RBC 2 0 - 4 /hpf Urine Microscopic WBC 2 0-5 /HPF Urine Squamous Epithelial Cells Few <5 /hpf Urine Bacteria None seen None Seen /hpf Urine Mucus Few None Seen Urine Glucose Normal Normal mg/dL Urine Test Negative Negative Assessment/Plan Assessment/Plan Right flank pain Probable herpes zoster infection - started on acyclovir 800 mg 5 times daily - pain management with oxycodone and acetaminophen - IV fluids Possible GERD - Protonix Hypertensive heart disease - at home patient is on metoprolol succinate 25 mg daily - losartan 25 mg daily Goals of care discussed with the patient for over 27 minutes. Full code Time spent: 39 minutes Plan discussed with Dr. Mooney Plan discussed with: Patient My Orders Orders - [facility] Procedure Category Date Status Time Admit ADMIT 11/05/24 Transmitted 22:49 Sodium Chloride 0.9% PHA 11/05/24 In Process 23:00 Oxycodone W/ Acet PHA 11/05/24 In Process 5/325mg Tab (Percocet 23:00 Acetaminophen Tablet PHA 11/05/24 In Process (Tylenol Tablet) 23:00 Acyclovir Tablet PHA 11/06/24 In Process (Zovirax Tablet) 06:00 Hepatitis B Surface LAB 11/06/24 Logged Antigen 00:40 Hepatitis C Antibody LAB 11/06/24 Logged 00:40 * Dietary Consult CONS 11/06/24 Transmitted 00:40 Date of Service: Nov 05, 2024 Billing Provider: ABDON MOONEY MD Common Visit Codes: [id number] INP/OBS CARE (HIGH) Secondary Visit Codes: [id number] CARE PLAN 30 MINUTES [facility] RESIDENT Nov 06, 2024 00:56
[2024-11-06] MEDS ORDERED: ONDANSETRON HCL 4 MG/2 ML VIAL IV PRN (01:00)
[2024-11-06 05:00] VITALS: BP 105/53; PULSE 64; RESP 16; O2SAT 99
[2024-11-06 06:18] LABS: Basophils # (auto) 0.1 10 ^3/uL (0-0.2); Eosinophils # (auto) 0.2 10 ^3/uL (0-0.8); Eosinophils % (auto) 3.4 % (0.0-7.0); Hematocrit 42.8 % (36.0-46.0); Hemoglobin 14.2 g/dL (12.2-16.2); Lymphocytes # (auto) 2.3 10 ^3/uL (0.4-5.4); Lymphocytes % (auto) 35.3 % (10.0-50.0); Mean Corpuscular Hemoglobin 28.4 pg (28.0-32.0); Mean Corpuscular Hgb Conc. 33.2 g/dL (32.0-36.0); Mean Corpuscular Volume 85.6 fL (80.0-100.0); Monocytes # (auto) 0.5 10 ^3/uL (0-1.3); Monocytes % (auto) 7.7 % (0.0-12.0); Neutrophils # (auto) 3.4 10 ^3/uL (1.6-8.6); Neutrophils % (auto) 52.6 % (37.0-80.0); Nucleated Red Blood Cells % 0.1 %; Platelet Count (auto) 313 10^3/uL (140-450); Red Cell Distribution Width 13.7 % (11.8-14.3); White Blood Cell 6.5 10^3/uL (4.4-10.8)
[2024-11-06] MEDS: ACYCLOVIR 400 MG TAB PO SCH (06:32)
[2024-11-06] MEDS: PANTOPRAZOLE 40 MG TAB PO SCH (06:32)
[2024-11-06 06:33] LABS: Potassium 3.8 mmol/L (3.5-5.1); Sodium 144 mmol/L (136-145)
[2024-11-06 06:34] LABS: Anion Gap 12 (5-15); Carbon Dioxide 22 mmol/L (20-31); Chloride 110 mmol/L (98-107)
[2024-11-06 06:35] LABS: Calcium 9.7 mg/dL (8.7-10.4)
[2024-11-06 06:39] LABS: Glucose 103 mg/dL (74-106)
[2024-11-06 06:40] LABS: BUN/Creatinine Ratio 12.3 (10.0-20.0); Blood Urea Nitrogen 9 mg/dL (9-23)
[2024-11-06 08:00] VITALS: PULSE 71; RESP 16; O2SAT 99
--- NOTE | 2024-11-06 13:46 | DVHPN2 ---
Reviewed: Care Plan, H&P, Labs, Medications, Previous Orders, Radiology Changes from previous H/P or p: No Changes Objective Vitals Vital Signs Date Time Temp Pulse Resp B/P (MAP) Pulse Ox O2 Delivery O2 Flow Rate FiO2 11/06/24 12:00 98.2 72 20 134/72 (92) 98 98.2 11/06/24 08:00 Nasal Cannula* 2 28 Intake/Output Intake and Output 11/06/24 07:00 Intake Total 250 ml Balance 250 ml Intake Other 250 ml Medications Current Medications Medications Dose Ordered Sig/Khadijah Route Start Time Stop Time Status Last Admin Dose Admin Oxycodone/ Acetaminophen 1 tab Q6HP PRN PO 11/05/24 23:00 11/05/24 23:39 1 TAB Acetaminophen 650 mg Q6HP PRN PO 11/05/24 23:00 Acyclovir 800 mg 5XD PO 11/06/24 06:00 11/06/24 10:20 800 MG Ondansetron HCl 4 mg Q6HPRN PRN IV 11/06/24 01:00 Pantoprazole Sodium 40 mg DAILY@0600 PO 11/06/24 06:00 11/06/24 06:32 40 MG Laboratory Results Laboratory Tests 11/06/24 05:44 Chemistry Test 11/06/24 05:44 Calcium Level 9.7 mg/dL (8.7-10.4) Urinalysis Test 11/05/24 09:39 Urine Color Yellow (Yellow) Urine Clarity Clear (Clear) Urine pH 6.0 (5.0-9.0) Urine Specific Bradley 1.019 (1.001-1.035) Urine Protein Negative (Negative) Urine Ketones Negative (Negative) Urine Blood Negative /uL (Negative) Urine Nitrite Negative (Negative) Urine Bilirubin Negative (Negative) Urine Urobilinogen Normal mg/dL (Negative) Urine Leukocyte Esterase Negative /uL (Negative) Urine RBC 2 /hpf (0 - 4) Urine Microscopic WBC 2 /HPF (0-5) Urine Squamous Epithelial Cells Few /hpf (<5) Urine Bacteria None seen /hpf (None Seen) Urine Mucus Few (None Seen) Urine Glucose Normal mg/dL (Normal) Urine Test Negative (Negative) Labs and/or images reviewed: Labs reviewed by me, Image(s) reviewed by me Assessment/Plan Assessment/Plan Probable herpes zoster infection: Acyclovir 800 mg five time daily pain management GERD Protonix Hypertensive heart disease: Metoprolol and losartan History of cholecystectomy Plan discussed with: Patient Date of Service: Nov 06, 2024 Billing Provider: BHAVANA RUDD MD Common Visit Codes: [id number] INP/OBS CARE(HIGH) BHAVANA RUDD MD Nov 06, 2024 13:46
[2024-11-06 18:00] VITALS: BP 130/82; PULSE 72; RESP 17; TEMP 97.4; O2SAT 96
[2024-11-06 21:00] VITALS: BP 131/82; PULSE 67; RESP 17; TEMP 97.7; O2SAT 97
[2024-11-07 01:00] VITALS: BP 145/68; PULSE 73; RESP 18; TEMP 98; O2SAT 96
[2024-11-07 05:00] VITALS: BP 126/82; PULSE 81; RESP 18; TEMP 97.6; O2SAT 91
[2024-11-07 09:00] VITALS: BP 129/70; PULSE 89; RESP 18; TEMP 97.8; O2SAT 97
--- NOTE | 2024-11-07 12:11 | DVHPN2 ---
Reviewed: Care Plan, H&P, Labs, Medications, Previous Orders, Radiology Changes from previous H/P or p: No Changes Objective Vitals Vital Signs Date Time Temp Pulse Resp B/P (MAP) Pulse Ox O2 Delivery O2 Flow Rate FiO2 11/07/24 09:00 97.8 89 18 129/70 (89) 97 97.8 11/07/24 08:00 Room Air* 0 21 Intake/Output Intake and Output 11/07/24 07:00 Intake Total 1600 ml Balance 1600 ml Intake Oral 1600 ml # Voids 4 Medications Current Medications Medications Dose Ordered Sig/Khadijah Route Start Time Stop Time Status Last Admin Dose Admin Oxycodone/ Acetaminophen 1 tab Q6HP PRN PO 11/05/24 23:00 11/06/24 15:22 1 TAB Acetaminophen 650 mg Q6HP PRN PO 11/05/24 23:00 Acyclovir 800 mg 5XD PO 11/06/24 06:00 11/07/24 09:40 800 MG Ondansetron HCl 4 mg Q6HPRN PRN IV 11/06/24 01:00 Pantoprazole Sodium 40 mg DAILY@0600 PO 11/06/24 06:00 11/07/24 05:44 40 MG Laboratory Results Laboratory Tests 11/06/24 05:44 Urinalysis Test 11/05/24 09:39 Urine Color Yellow (Yellow) Urine Clarity Clear (Clear) Urine pH 6.0 (5.0-9.0) Urine Specific [place] 1.019 (1.001-1.035) Urine Protein Negative (Negative) Urine Ketones Negative (Negative) Urine Blood Negative /uL (Negative) Urine Nitrite Negative (Negative) Urine Bilirubin Negative (Negative) Urine Urobilinogen Normal mg/dL (Negative) Urine Leukocyte Esterase Negative /uL (Negative) Urine RBC 2 /hpf (0 - 4) Urine Microscopic WBC 2 /HPF (0-5) Urine Squamous Epithelial Cells Few /hpf (<5) Urine Bacteria None seen /hpf (None Seen) Urine Mucus Few (None Seen) Urine Glucose Normal mg/dL (Normal) Urine Test Negative (Negative) Labs and/or images reviewed: Labs reviewed by me, Image(s) reviewed by me Assessment/Plan Assessment/Plan Probable herpes zoster infection: Acyclovir 800 mg five time daily pain management GERD Protonix Hypertensive heart disease: Metoprolol and losartan History of cholecystectomy Continue current management Plan discussed with: Patient Date of Service: Nov 07, 2024 Billing Provider: BHAVANA RUDD MD Common Visit Codes: [id number] INP/OBS CARE(HIGH) BHAVANA RUDD MD Nov 07, 2024 12:11
[2024-11-07] MEDS ORDERED: ACYC400T16 PO (12:52)
[2024-11-07] MEDS ORDERED: TRAM-626 PO (12:52)
--- NOTE | 2024-11-07 12:56 | DVHDS2 ---
Discharge Summary Date of Admission Nov 05, 2024 at 22:49 Date of Discharge: Nov 07, 2024 Admitting Diagnosis Herpes Zoster right lateral chest Wounds: Herpes zoster Labs/Diagnostic Data: Laboratory Results Test 11/06/24 05:44 11/05/24 09:58 11/05/24 09:39 White Blood Count 6.5 10^3/uL (4.4-10.8) Red Blood Count 5.00 10^6/uL (4.0-5.20) Hemoglobin 14.2 g/dL (12.2-16.2) Hematocrit 42.8 % (36.0-46.0) Mean Corpuscular Volume 85.6 fL (80.0-100.0) Mean Corpuscular Hemoglobin 28.4 pg (28.0-32.0) Mean Corpuscular Hemoglobin Concent 33.2 g/dL (32.0-36.0) Red Cell Distribution Width 13.7 % (11.8-14.3) Platelet Count 313 10^3/uL (140-450) Mean Platelet Volume 7.0 fL (6.9-10.8) Neutrophils (%) (Auto) 52.6 % (37.0-80.0) Lymphocytes (%) (Auto) 35.3 % (10.0-50.0) Monocytes (%) (Auto) 7.7 % (0.0-12.0) Eosinophils (%) (Auto) 3.4 % (0.0-7.0) Basophils (%) (Auto) 1.0 % (0.0-2.0) Neutrophils # (Auto) 3.4 10 ^3/uL (1.6-8.6) Lymphocytes # (Auto) 2.3 10 ^3/uL (0.4-5.4) Monocytes # (Auto) 0.5 10 ^3/uL (0-1.3) Eosinophils # (Auto) 0.2 10 ^3/uL (0-0.8) Basophils # (Auto) 0.1 10 ^3/uL (0-0.2) Nucleated Red Blood Cells 0.1 % Sodium Level 144 mmol/L (136-145) Potassium Level 3.8 mmol/L (3.5-5.1) Chloride Level 110 mmol/L (98-107) Carbon Dioxide Level 22 mmol/L (20-31) Anion Gap 12 (5-15) Blood Urea Nitrogen 9 mg/dL (9-23) Creatinine 0.73 mg/dL (0.550-1.02) Glomerular Filtration Rate Calc 100 mL/min (>90) BUN/Creatinine Ratio 12.3 (10.0-20.0) Serum Glucose 103 mg/dL (74-106) Calcium Level 9.7 mg/dL (8.7-10.4) Total Bilirubin 0.6 mg/dL (0.2-1.0) Aspartate Amino Transferase (AST) 35 U/L (<34) Alanine Aminotransferase (ALT) 44 U/L (7-40) Alkaline Phosphatase 112 U/L (46-116) Total Protein 7.5 g/dL (5.7-8.2) Albumin 4.6 g/dL (3.2-4.8) Lipase 31 U/L (12-53) Urine Color Yellow (Yellow) Urine Clarity Clear (Clear) Urine pH 6.0 (5.0-9.0) Urine Specific [place] 1.019 (1.001-1.035) Urine Protein Negative (Negative) Urine Ketones Negative (Negative) Urine Blood Negative /uL (Negative) Urine Nitrite Negative (Negative) Urine Bilirubin Negative (Negative) Urine Urobilinogen Normal mg/dL (Negative) Urine Leukocyte Esterase Negative /uL (Negative) Urine RBC 2 /hpf (0 - 4) Urine Microscopic WBC 2 /HPF (0-5) Urine Squamous Epithelial Cells Few /hpf (<5) Urine Bacteria None seen /hpf (None Seen) Urine Mucus Few (None Seen) Urine Glucose Normal mg/dL (Normal) Urine Test Negative (Negative) Other Laboratory Tests 11/06/24 05:44 Brief Hx & Hospital Course: 49-year-old female came to the hospital for right flank pain CT abdomen pelvis without contrast negative CBC CMP within normal limits patient has typical herpes zoster rash over the right lateral chest treated with acyclovir feels better afebrile and wants to go home. at the bedside. Discharged home on acyclovir and tramadol. She will follow up with the primary Dr Dr Huitron. Consults/Reason for consult None Operations or Procedures CT abdomen pelvis without contrast Condition at Discharge: Fair Final Diagnosis/Problems List Shingles right lateral chest Discharge Disposition: Home Discharge Instruct/Medications Diet: Regular Activity: Light activity Medications: Acyclovir Tramadol Transmitted to pharmacy 35 (Time taken for discharge summary 35 minutes) Discharge Statement: "Patient was advised to return to the ER or call 911 if any headaches, dizziness, shortness of breath, chest pain, abdominal pain, bleeding, fevers, or worsening of medical condition. Patient was counseled about treatment plan, medications, possible side effects, patientverbalized understanding. All questions were answered to the best of my ability. This discharge took greater then 30 minutes in planning, reviewing documentation, counseling the patient, and discussing with other team members." ASSESSMENT ASSESSMENT Hospital Course Improved Assessment Shingles right lateral chest Date of Service: Nov 07, 2024 Billing Provider: BHAVANA RUDD MD Common Visit Codes: 48621-DNN/OBS DISCH DAY >30min BHAVANA RUDD MD Nov 07, 2024 12:56
[2024-11-07 13:00] VITALS: BP 139/69; PULSE 74; RESP 18; TEMP 98; O2SAT 97
[2024-11-08 11:14] LABS: Hepatitis B Surface Antigen Negative (Negative); Hepatitis C Antibody Negative (Negative)
== END 2024-11-07 15:50 | disposition home or self-care (01) | DRG 383 ==
LOC: ER 09:25 → OVERFLOW 22:49 → CENTRAL 11-06 18:14
PROVIDERS: ATTEND Internal Medicine
DX: B02.9 Zoster without complications (principal); I11.9 Hypertensive heart disease without heart failure; G47.00 Insomnia, unspecified; K21.9 Gastro-esophageal reflux disease without esophagitis; Z90.49 Acquired absence of other specified parts of digestive tract; Z87.442 Personal history of urinary calculi
CPT/HCPCS: 36415; 74176; 80048; 80053; 81001; 81025; 83690; 85025; 86803; 87340; 96372; 96374; 96375; 99291; G0378; J2405

== ENCOUNTER 2024-11-29 08:59 | Outpatient (CLI) | payer MEDICAID ==
[~2024-11-29 08:59] MED LIST changes: +ACYC400T16 PO; +TRAM-626 PO
[2024-11-29 10:10] LABS: Hematocrit 43.1 % (36.0-46.0); Hemoglobin 14.4 g/dL (12.2-16.2); Mean Corpuscular Hemoglobin 28.5 pg (28.0-32.0); Mean Corpuscular Volume 84.9 fL (80.0-100.0); Nucleated Red Blood Cells % 0.0 %
[2024-11-29 10:36] LABS: Alkaline Phosphatase 101 U/L (46-116); Anion Gap 12 (5-15); Calcium 9.7 mg/dL (8.7-10.4); Carbon Dioxide 23 mmol/L (20-31); Glucose 98 mg/dL (74-106); Sodium 144 mmol/L (136-145)
[2024-11-29 10:37] LABS: BUN/Creatinine Ratio 15.9 (10.0-20.0); Blood Urea Nitrogen 10 mg/dL (9-23); Total Protein 7.4 g/dL (5.7-8.2); Triglycerides 143 mg/dL (< 150)
[2024-11-29 10:38] LABS: Albumin 4.6 g/dL (3.2-4.8); Cholesterol 162 mg/dL (< 200); HDL Cholesterol 45 mg/dL (40-59)
[2024-11-29 10:39] LABS: Alanine Aminotransferase 41 U/L (7-40); Bilirubin, Total 0.5 mg/dL (0.2-1.0); Chloride 109 mmol/L (98-107); Potassium 3.5 mmol/L (3.5-5.1)
[2024-11-29 11:23] LABS: Hepatitis A Total Antibody Positive (Negative); Hepatitis B Surface Antigen Negative (Negative); Hepatitis C Antibody Negative (Negative)
== END 2024-11-29 17:00 | disposition home or self-care (01) ==
LOC: LAB 08:59
PROVIDERS: ATTEND Licensed Practical Nurse
DX: I10 Essential (primary) hypertension (principal); E78.5 Hyperlipidemia, unspecified; E55.9 Vitamin D deficiency, unspecified; Z13.1 Encounter for screening for diabetes mellitus
CPT/HCPCS: 36415; 80053; 80061; 82043; 82306; 83036; 85025; 86704; 86706; 86708; 86803; 87340

== ENCOUNTER → 2025-03-02 | Outpatient (CLI) | payer MEDICAID ==
[2025-03-02 08:13] LABS: Hematocrit 42.0 % (36.0-46.0); Hemoglobin 14.1 g/dL (12.2-16.2); Mean Corpuscular Hemoglobin 28.5 pg (28.0-32.0); Mean Corpuscular Volume 85.0 fL (80.0-100.0); Nucleated Red Blood Cells % 0.0 %
[2025-03-02 08:34] LABS: Alkaline Phosphatase 106 U/L (46-116); Anion Gap 10 (5-15); BUN/Creatinine Ratio 17.6 (10.0-20.0); Blood Urea Nitrogen 13 mg/dL (9-23); Calcium 9.0 mg/dL (8.7-10.4); Carbon Dioxide 27 mmol/L (20-31); Chloride 106 mmol/L (98-107); Glucose 104 mg/dL (74-106); Potassium 3.8 mmol/L (3.5-5.1); Sodium 143 mmol/L (136-145); Triglycerides 75 mg/dL (< 150)
[2025-03-02 08:35] LABS: Albumin 4.5 g/dL (3.2-4.8); Total Protein 7.8 g/dL (5.7-8.2)
[2025-03-02 08:36] LABS: Bilirubin, Total 0.6 mg/dL (0.2-1.0); Cholesterol 143 mg/dL (< 200); HDL Cholesterol 57 mg/dL (40-59)
[2025-03-02 08:41] LABS: Alanine Aminotransferase 42 U/L (7-40)
[2025-03-02 12:07] LABS: Hepatitis A Total Antibody Positive (Negative); Hepatitis B Surface Antigen Negative (Negative); Hepatitis C Antibody Negative (Negative)
== END | disposition home or self-care (01) ==
LOC: LAB 07:46
PROVIDERS: ATTEND Licensed Practical Nurse
DX: I10 Essential (primary) hypertension (principal); E78.2 Mixed hyperlipidemia
CPT/HCPCS: 36415; 80053; 80061; 82043; 85025; 86704; 86706; 86708; 86803; 87340

== ENCOUNTER 2025-04-15 09:36 | Day surgery (SDC) | payer MEDICAID ==
[2025-04-13 14:43] LABS: Hematocrit 40.9 % (36.0-46.0); Hemoglobin 14.2 g/dL (12.2-16.2); Mean Corpuscular Hemoglobin 29.3 pg (28.0-32.0); Mean Corpuscular Volume 84.5 fL (80.0-100.0); Nucleated Red Blood Cells % 0.0 %
[2025-04-13 14:59] LABS: Urine Budding Yeast OCCASIONAL /hpf (None Seen); Urine Protein, UAD Negative (Negative)
[2025-04-13 15:06] LABS: Alanine Aminotransferase 39 U/L (7-40); Albumin 4.5 g/dL (3.2-4.8); Anion Gap 11 (5-15); BUN/Creatinine Ratio 15.4 (10.0-20.0); Bilirubin, Total 0.4 mg/dL (0.2-1.0); Blood Urea Nitrogen 10 mg/dL (9-23); Calcium 9.7 mg/dL (8.7-10.4); Carbon Dioxide 29 mmol/L (20-31); Chloride 104 mmol/L (98-107); Glucose 87 mg/dL (74-106); Potassium 3.7 mmol/L (3.5-5.1); Sodium 144 mmol/L (136-145); Total Protein 7.8 g/dL (5.7-8.2)
[2025-04-13 15:08] LABS: Alkaline Phosphatase 121 U/L (46-116)
[2025-04-13 15:45] LABS: INR 1.01 (0.9-1.15); Partial Thromboplastin Time 27.2 SEC (24.5-34.5); Prothrombin Time 10.7 sec (9.3-11.8)
[~2025-04-15] VITALS: Ht 162.6 cm; Wt 104.3 kg
[~2025-04-15 09:36] MED LIST changes: -ACYC400T16 PO; -APIX5TAB PO; -ATOR20TA PO; +CHOL200031 PO; -ENAL5TAB85 PO; +METO25TA93 PO; -TRAM-626 PO
[2025-04-15 10:13] VITALS: TEMP 98.4
[2025-04-15 11:45] VITALS: PULSE 80; RESP 16; O2SAT 96
--- NOTE | 2025-04-15 11:53 | DVHOP2 ---
Operative Report DATE OF OPERATION: 04/15/25 PROCEDURE: Upper Endoscopy with biopsy. PREOPERATIVE INDICATION: The patient is a 49 -year-old female undergoing endoscopy for chronic GERD POSTOPERATIVE DIAGNOSES: 1. -2 cm sliding-type hiatal hernia with slightly irregular squamocolumnar junction and GE junction biopsies were obtained 2. Mild antrum gastritis otherwise normal examination up to the 2nd and 3rd part of the duodenum PROCEDURE PERFORMED BY: Jacquelyn Flanagan GI NURSE: Rishi SCOPE: Olympus videoendoscope. ASA CLASS: 2 PREOPERATIVE MEDICATIONS: Mac sedation, Dr. Dent PROCEDURE IN DETAIL: After obtaining an informed consent, the patient was placed on left lateral decubitus position. The patient was then sedated with the above medications. A bite block was placed between her teeth. The endoscope was then passed through the oropharynx, into the esophagus, and through the stomach and pylorus up to the second and third part of the duodenum. The endoscope was then withdrawn. The 2nd and 3rd part of the duodenal and the duodenal bulb were normal. Duodenal biopsies were obtained The pre-pyloric area antrum and body showed mild antral gastritis. Gastric biopsies were obtained. On retroflexion the fundus and cardia were normal. The endoscope was then withdrawn into distal esophagus Patient had a 1-2 cm sliding-type hiatal hernia with slightly irregular squamocolumnar junction and minimal grade a erosive esophagitis GE junction biopsies were obtained. The remaining distal and proximal esophagus and oropharynx were unremarkable The patient tolerated the procedure well without difficulty. COMPLICATIONS : None SPECIMENS: Duodenal biopsy Gastric biopsy GE junction biopsies DISPOSITION: Stable D/C to home PLAN: 1. Await for biopsy result 2. Will place pt on Protonix 40 mg p.o. daily 3. Resume GI soft diet advance as tolerated, lifestyle modifications for GERD 4. Outpatient follow up with me in 2-4 weeks to review results and discuss further management JACQUELYN FLANAGAN MD Apr 15, 2025 11:53
--- NOTE | 2025-04-15 11:56 | DVHOP2 ---
Operative Report DATE OF OPERATION: 04/15/25 PROCEDURE: Diagnostic Colonoscopy. PREOPERATIVE INDICATION: The patient is a 49 -year-old female undergoing colonoscopy for colon cancer screening with some change in bowel habits POSTOPERATIVE DIAGNOSES: 1. Trace to 1+ internal hemorrhoids otherwise completely normal colonoscopy examination up to the cecum and terminal ileum PROCEDURE PERFORMED BY: Jacquelyn Flanagan M.D. SCOPE: Olympus videocolonoscope. ASA CLASS: 2. PREOPERATIVE MEDICATIONS: Dr. Filipe Gill PROCEDURE IN DETAIL: After obtaining an informed consent, the patient was placed on left lateral decubitus position. She was then sedated with the above medications. A rectal examination was performed that was normal. The colonoscope was then passed through the anus into the rectosigmoid and through the descending, transverse, and ascending colon up to the cecum with visualization of the appendiceal orifice, base of the cecum and the ileocecal valve. The colonoscope was then withdrawn. The distal 5-10 cm of the terminal ileum were normal No polyps or masses were seen. There was no colitis or diverticular disease. On retroflexion and straight on view the patient had trace to 1+ internal hemorrhoids The patient tolerated the procedure well without difficulty. WITHDRAWAL TIME: 6 minutes QUALITY OF THE PREP: Mountain Bowel Prep score: 9. COMPLICATIONS : None SPECIMENS: None DISPOSITION: Stable D/C to home PLAN: 1. Repeat colonoscopy in 10 years 2. Resume GI soft diet advance as tolerated 3. Local anorectal hemorrhoidal care 4. Outpatient follow up with me in 2-4 weeks to review results and discuss further management JACQUELYN FLANAGAN MD Apr 15, 2025 11:56
[2025-04-15] MEDS ORDERED: ACETAMINOPHEN IV 100 ML IV ONE (12:19)
[2025-04-15] MEDS: ACETAMINOPHEN IV 1000 MG/100ML (10MG/ML) IV STA (12:25)
[2025-04-15 12:30] VITALS: RESP 16
[2025-04-15 13:00] VITALS: BP 137/62; PULSE 56; O2SAT 99
== END 2025-04-15 13:33 | disposition home or self-care (01) ==
LOC: GI 09:36
PROVIDERS: ATTEND Internal Medicine Gastroenterology
DX: R19.4 Change in bowel habit (principal); K29.50 Unspecified chronic gastritis without bleeding; K21.00 Gastro-esophageal reflux disease with esophagitis, without bleeding; K44.9 Diaphragmatic hernia without obstruction or gangrene; K64.8 Other hemorrhoids; E66.9 Obesity, unspecified; I10 Essential (primary) hypertension; Z79.899 Other long term (current) drug therapy; Z90.710 Acquired absence of both cervix and uterus; Z90.721 Acquired absence of ovaries, unilateral; Z98.891 History of uterine scar from previous surgery; Z80.0 Family history of malignant neoplasm of digestive organs; Z83.3 Family history of diabetes mellitus; Z68.39 Body mass index [BMI] 39.0-39.9, adult
CPT/HCPCS: 36415; 43239; 45378; 80053; 81001; 81025; 85025; 85610; 85730; 88305; 88313; 88342; J7030; J0131